=== PATIENT | female | born 1980 | race Two or more races ===

== ENCOUNTER 2017-08-10 07:28 | Emergency (ER) | payer OTHER ==
[2017-08-10] MEDS ORDERED: NAPR500T3 (07:51)
[2017-08-10] MEDS ORDERED: OMEP20CA3 (07:51)
[2017-08-10] MEDS ORDERED: VITA-122 (07:51)
[2017-08-10] MEDS ORDERED: METF750T (07:51)
[2017-08-10] MEDS ORDERED: ADVA230A (07:51)
[2017-08-10] MEDS ORDERED: KETO2SH (07:51)
[2017-08-10] MEDS ORDERED: SPIR25TA2 (07:51)
[2017-08-10] MEDS ORDERED: MOME50SP (07:51)
[2017-08-10] MEDS ORDERED: TOPI25TA10 (07:51)
[2017-08-10] MEDS ORDERED: ALBU17IN (07:51)
[2017-08-10] MEDS ORDERED: [UNRECOGNIZED DRUG - CODE] (07:51)
[2017-08-10] MEDS ORDERED: NORCO, ANEXSIA 5/325MG TABLET (HYDROcodone/ACETAMINOPHEN) PO ONE (08:45)
--- NOTE | 2017-08-10 09:44 | REP ---
Right ankle series: Four views. History: Trauma. Findings: Four views right ankle demonstrate an intact ankle mortise. No acute fracture is seen. There is a old triangular accessory ossicle at the medial malleolus. 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 Plantar and Achilles calcaneal spurring is also noted. Impression: No acute fracture. Tibiotalar spurring and calcaneal spurring noted. Accessory ossicle at the medial malleolus. Signed by Roberto Spence MD 08/10/2017 03:02 P
[2017-08-10 09:51] VITALS: BP 131/81
[2017-08-10] MEDS ORDERED: IBUP-1022 PO (11:50)
== END 2017-08-10 10:02 | disposition home or self-care (01) ==
LOC: M ED 07:28
DX: S93.401A Sprain of unspecified ligament of right ankle, initial encounter (principal); X50.9XXA Other and unspecified overexertion or strenuous movements or postures, initial encounter; Y92.019 Unspecified place in single-family (private) house as the place of occurrence of the external cause; Y93.01 Activity, walking, marching and hiking; Y99.8 Other external cause status; M77.31 Calcaneal spur, right foot; J45.909 Unspecified asthma, uncomplicated; Z79.3 Long term (current) use of hormonal contraceptives; Z79.899 Other long term (current) drug therapy; Z88.8 Allergy status to other drugs, medicaments and biological substances; Z88.1 Allergy status to other antibiotic agents; Z88.2 Allergy status to sulfonamides

== ENCOUNTER → 2017-12-28 | Outpatient (CLI) | payer OTHER | LOC: M RAD 09:26 | DX: M48.061 Spinal stenosis, lumbar region without neurogenic claudication (principal) ==

== ENCOUNTER 2018-04-15 15:14 | Inpatient (IN) | payer OTHER ==
[2018-04-15] MEDS ORDERED: ALBUTEROL SULFATE 2.5 MG/0.5 ML INH NEB SOLN As Ordered (15:35)
[2018-04-15] MEDS: ALBUTEROL SULFATE 2.5 MG/0.5 ML INH NEB SOLN NEB ×4 (15:38→18:10)
[2018-04-15] MEDS: NS 1,000 ML IV ×3 (15:53→22:59)
[2018-04-15] MEDS: ASPIRIN 81 MG CHEW TABLET PO (15:53)
[2018-04-15] MEDS: FAMOTIDINE IV BAG 20 MG in APPROPRIATE DILUENT 1 EA IV (15:54)
[2018-04-15 15:55] LABS: BASO # 0.1 10^3/uL (0.0-0.2); BASO % 0.4 % (0.0-1.0); EOS # 0.2 10^3/uL (0.0-0.50); EOS % 1.2 % (0.0-3.0); HEMATOCRIT 40.4 % (36.0-47.0); IMMATURE GRANULOCYTE % 0.6 % (0-3.0); LYMPH # 3.7 10^3/uL (1.5-4.5); LYMPH % 30.5 % (24.0-44.0); MEAN CORPUSCULAR HEMOGLOBIN 26.7 pg (27.0-33.0); MEAN CORPUSCULAR HGB CONC 32.2 g/dl (32.0-36.5); MONO # 1.1 10^3/uL (0.0-0.8); MONO % 8.9 % (0.0-5.0); NEUTROPHILS # 7.1 10^3/uL (1.8-7.7); NEUTROPHILS % 58.4 % (36.0-66.0); PLATELET COUNT, AUTOMATED 327 10^3/uL (150-450); RED BLOOD COUNT 4.87 10^6/uL (4.00-5.40); RED CELL DISTRIBUTION WIDTH 13.9 % (11.5-14.5); WHITE BLOOD COUNT 12.2 10^3/uL (4.0-10.0)
[2018-04-15 16:02] LABS: ANION GAP 7 MEQ/L (8-16); BLOOD UREA NITROGEN 9 MG/DL (7-18); CALCIUM LEVEL 8.9 MG/DL (8.5-10.1); CARBON DIOXIDE LEVEL 26 MEQ/L (21-32); CHLORIDE LEVEL 107 MEQ/L (98-107); CREATININE FOR GFR 0.76 MG/DL (0.55-1.30); GLOMERULAR FILTRATION RATE > 60.0 (>60); GLUCOSE, FASTING 109 MG/DL (70-100); POTASSIUM SERUM 3.7 MEQ/L (3.5-5.1); SODIUM LEVEL 140 MEQ/L (136-145); TROPONIN I < 0.02 NG/ML (< 0.10)
[2018-04-15 16:03] LABS: CK-MB VALUE MASS < 1.0 NG/ML (<3.6); CPK CREATINE PHOSPHOKINASE 74 U/L (26-192); MB/CK RELATIVE INDEX 1.35 (< OR =4)
[2018-04-15 16:20] LABS: INR 1.04; PROTHROMBIN TIME 13.7 SECONDS (12.4-14.5)
[2018-04-15 16:23] LABS: D-DIMER QUANT 435.5 ng/ml (<500)
[2018-04-15 17:29] LABS: VENOUS BASE EXCESS -5.1 (-2.0-2.0); VENOUS HCO3 19.9 MEQ/L (23.0-27.0); VENOUS O2 SATURATION 82.5 % (60.0-80.0); VENOUS PARTIAL PRESSURE O2 49.7 mmHg (30.0-50.0); VENOUS PH 7.348 UNITS (7.330-7.430)
[2018-04-15] MEDS ORDERED: ISOVUE-370 76% 100ML VIAL (Q9967) As Ordered (18:57)
[2018-04-15] MEDS: methylPREDNISolone INJ 125 MG/2 ML VIAL (J2930) IV (21:41)
[2018-04-15] MEDS: AZITHROMYCIN 250 MG TAB PO (21:41)
[2018-04-16] MEDS: methylPREDNISolone INJ 125 MG/2 ML VIAL (J2930) IV ×2 (03:25→10:03)
[2018-04-16] MEDS: IPRATROPIUM 0.5MG/ALBUTEROL 2.5MG INH SOL UD 3ML (DUONEB)(J7620) NEB ×7 (03:31→23:39)
[2018-04-16 06:09] LABS: BASO % 0.1 % (0.0-1.0); HEMATOCRIT 38.7 % (36.0-47.0); HEMOGLOBIN 12.7 g/dl (12.0-15.5); IMMATURE GRANULOCYTE % 0.6 % (0-3.0); LYMPH # 1.5 10^3/uL (1.5-4.5); LYMPH % 9.1 % (24.0-44.0); MEAN CORPUSCULAR HEMOGLOBIN 26.6 pg (27.0-33.0); MEAN CORPUSCULAR HGB CONC 32.8 g/dl (32.0-36.5); MEAN CORPUSCULAR VOLUME 81.1 fl (80.0-96.0); MONO # 0.2 10^3/uL (0.0-0.8); MONO % 1.3 % (0.0-5.0); NEUTROPHILS # 14.5 10^3/uL (1.8-7.7); NEUTROPHILS % 88.9 % (36.0-66.0); PLATELET COUNT, AUTOMATED 344 10^3/uL (150-450); RED BLOOD COUNT 4.77 10^6/uL (4.00-5.40); RED CELL DISTRIBUTION WIDTH 13.9 % (11.5-14.5); WHITE BLOOD COUNT 16.3 10^3/uL (4.0-10.0)
[2018-04-16 06:26] LABS: ANION GAP 10 MEQ/L (8-16); BLOOD UREA NITROGEN 8 MG/DL (7-18); CARBON DIOXIDE LEVEL 21 MEQ/L (21-32); CHLORIDE LEVEL 109 MEQ/L (98-107); CREATININE FOR GFR 0.66 MG/DL (0.55-1.30); GLOMERULAR FILTRATION RATE > 60.0 (>60); GLUCOSE, FASTING 183 MG/DL (70-100); SODIUM LEVEL 140 MEQ/L (136-145)
[2018-04-16] MEDS: TIOTROPIUM INHALER/CAPSULE (SPIRIVA) INH (08:00)
[2018-04-16] MEDS: ENOXAPARIN 40 MG/0.4 ML SYRINGE (J1650) SC (08:47)
[2018-04-16] MEDS: ACETAMINOPHEN TAB 650MG DOSE (2X325MG) PO (08:49)
[2018-04-16] MEDS: PANTOPRAZOLE 40MG TAB (PROTONIX) PO (08:50)
[2018-04-16] MEDS: NS 1,000 ML IV (08:50)
[2018-04-16] MEDS: ADVAIR HFA 230/21MCG INHALER INH ×2 (09:00→21:29)
[2018-04-16] MEDS ORDERED: FLUTICASONE PROP 0.05% NASAL SPRAY 16 GM (FLONASE) (10:15)
[2018-04-16 11:38] LABS: ESTIMATED AVERAGE GLUCOSE 117 MG/DL (60-110); HEMOGLOBIN A1c 5.7 %
[2018-04-16 11:48] LABS: C REACTIVE PROTEIN QUANTITATIV 1.44 MG/DL (0.00-0.30); CK-MB VALUE MASS < 1.0 NG/ML (<3.6); CPK CREATINE PHOSPHOKINASE 78 U/L (26-192); MB/CK RELATIVE INDEX 1.28 (< OR =4); TROPONIN I < 0.02 NG/ML (< 0.10)
[2018-04-16] MEDS: VITAMIN D 1,000 INTERNATIONAL UNITS TABLET PO (11:56)
[2018-04-16] MEDS: guaiFENesin ER 600 MG TAB PO ×2 (11:57→20:54)
[2018-04-16] MEDS: FIORICET TAB PO (11:57)
[2018-04-16] MEDS: CYANOCOBALAMIN 500 MCG TAB PO (11:58)
[2018-04-16] MEDS: methylPREDNISolone INJ 40 MG/1 ML VIAL (J2920) IV ×2 (17:01→22:07)
[2018-04-16] MEDS: TOPIRAMATE (TopAMAX) 25 MG TAB PO (20:53)
[2018-04-16] MEDS: AZITHROMYCIN 250 MG TAB PO (20:54)
[2018-04-17] MEDS: IPRATROPIUM 0.5MG/ALBUTEROL 2.5MG INH SOL UD 3ML (DUONEB)(J7620) NEB ×6 (04:03→23:54)
[2018-04-17] MEDS: methylPREDNISolone INJ 40 MG/1 ML VIAL (J2920) IV ×3 (04:19→20:00)
[2018-04-17 05:54] LABS: HEMATOCRIT 38.7 % (36.0-47.0); HEMOGLOBIN 12.4 g/dl (12.0-15.5); MEAN CORPUSCULAR HEMOGLOBIN 26.3 pg (27.0-33.0); PLATELET COUNT, AUTOMATED 384 10^3/uL (150-450); RED BLOOD COUNT 4.72 10^6/uL (4.00-5.40); RED CELL DISTRIBUTION WIDTH 14.2 % (11.5-14.5); WHITE BLOOD COUNT 19.8 10^3/uL (4.0-10.0)
[2018-04-17 06:06] LABS: ANION GAP 8 MEQ/L (8-16); BLOOD UREA NITROGEN 11 MG/DL (7-18); C REACTIVE PROTEIN QUANTITATIV 0.88 MG/DL (0.00-0.30); CALCIUM LEVEL 8.9 MG/DL (8.5-10.1); CARBON DIOXIDE LEVEL 20 MEQ/L (21-32); CHLORIDE LEVEL 110 MEQ/L (98-107); CREATININE FOR GFR 0.82 MG/DL (0.55-1.30); GLOMERULAR FILTRATION RATE > 60.0 (>60); GLUCOSE, FASTING 192 MG/DL (70-100); POTASSIUM SERUM 3.9 MEQ/L (3.5-5.1); SODIUM LEVEL 138 MEQ/L (136-145)
[2018-04-17] MEDS: TIOTROPIUM INHALER/CAPSULE (SPIRIVA) INH (07:10)
[2018-04-17] MEDS: ADVAIR HFA 230/21MCG INHALER INH ×2 (07:10→20:00)
[2018-04-17] MEDS: CYANOCOBALAMIN 500 MCG TAB PO (09:02)
[2018-04-17] MEDS: PANTOPRAZOLE 40MG TAB (PROTONIX) PO (09:02)
[2018-04-17] MEDS: ENOXAPARIN 40 MG/0.4 ML SYRINGE (J1650) SC (09:02)
[2018-04-17] MEDS: VITAMIN D 1,000 INTERNATIONAL UNITS TABLET PO (09:03)
[2018-04-17] MEDS: guaiFENesin ER 600 MG TAB PO ×2 (09:03→21:28)
[2018-04-17] MEDS: MAALOX 30 ML SUSP *UDC PO (14:37)
[2018-04-17] MEDS: OMEPRAZOLE 20 MG CAP PO (14:37)
[2018-04-17] MEDS: AZITHROMYCIN 250 MG TAB PO (21:29)
[2018-04-17] MEDS: FIORICET TAB PO (21:29)
[2018-04-17] MEDS: TOPIRAMATE (TopAMAX) 25 MG TAB PO (21:29)
[2018-04-18] MEDS: IPRATROPIUM 0.5MG/ALBUTEROL 2.5MG INH SOL UD 3ML (DUONEB)(J7620) NEB ×6 (03:37→23:30)
[2018-04-18] MEDS: methylPREDNISolone INJ 40 MG/1 ML VIAL (J2920) IV (04:24)
[2018-04-18 04:41] LABS: HEMATOCRIT 41.2 % (36.0-47.0); HEMOGLOBIN 13.1 g/dl (12.0-15.5); MEAN CORPUSCULAR HEMOGLOBIN 26.4 pg (27.0-33.0); MEAN CORPUSCULAR HGB CONC 31.8 g/dl (32.0-36.5); MEAN CORPUSCULAR VOLUME 83.1 fl (80.0-96.0); PLATELET COUNT, AUTOMATED 419 10^3/uL (150-450); RED BLOOD COUNT 4.96 10^6/uL (4.00-5.40); RED CELL DISTRIBUTION WIDTH 14.4 % (11.5-14.5); WHITE BLOOD COUNT 19.4 10^3/uL (4.0-10.0)
[2018-04-18 04:51] LABS: ANION GAP 9 MEQ/L (8-16); BLOOD UREA NITROGEN 12 MG/DL (7-18); C REACTIVE PROTEIN QUANTITATIV 0.55 MG/DL (0.00-0.30); CALCIUM LEVEL 9.1 MG/DL (8.5-10.1); CARBON DIOXIDE LEVEL 23 MEQ/L (21-32); CHLORIDE LEVEL 106 MEQ/L (98-107); CREATININE FOR GFR 0.91 MG/DL (0.55-1.30); GLOMERULAR FILTRATION RATE > 60.0 (>60); GLUCOSE, FASTING 193 MG/DL (70-100); MAGNESIUM LEVEL 2.2 MG/DL (1.8-2.4); SODIUM LEVEL 138 MEQ/L (136-145)
[2018-04-18] MEDS: TIOTROPIUM INHALER/CAPSULE (SPIRIVA) INH (07:40)
[2018-04-18] MEDS: ADVAIR HFA 230/21MCG INHALER INH ×2 (07:40→19:42)
[2018-04-18] MEDS: CYANOCOBALAMIN 500 MCG TAB PO (10:02)
[2018-04-18] MEDS: guaiFENesin ER 600 MG TAB PO ×2 (10:02→21:10)
[2018-04-18] MEDS: FIORICET TAB PO (10:02)
[2018-04-18] MEDS: OMEPRAZOLE 20 MG CAP PO (10:02)
[2018-04-18] MEDS: ENOXAPARIN 40 MG/0.4 ML SYRINGE (J1650) SC (10:03)
[2018-04-18] MEDS: VITAMIN D 1,000 INTERNATIONAL UNITS TABLET PO (10:03)
[2018-04-18] MEDS: ACETAMINOPHEN TAB 650MG DOSE (2X325MG) PO (15:06)
[2018-04-18] MEDS: methylPREDNISolone INJ 125 MG/2 ML VIAL (J2930) IV (15:07)
[2018-04-18] MEDS: BENZONATATE 100 MG CAP PO ×2 (15:07→21:10)
[2018-04-18] MEDS: TOPIRAMATE (TopAMAX) 25 MG TAB PO (21:10)
[2018-04-18] MEDS: AZITHROMYCIN 250 MG TAB PO (21:10)
[2018-04-19] MEDS: IPRATROPIUM 0.5MG/ALBUTEROL 2.5MG INH SOL UD 3ML (DUONEB)(J7620) NEB ×7 (03:20→22:59)
[2018-04-19] MEDS: methylPREDNISolone INJ 125 MG/2 ML VIAL (J2930) IV ×2 (04:08→15:07)
[2018-04-19] MEDS: BENZONATATE 100 MG CAP PO ×3 (05:04→21:13)
[2018-04-19 06:30] LABS: HEMATOCRIT 40.5 % (36.0-47.0); HEMOGLOBIN 13.2 g/dl (12.0-15.5); MEAN CORPUSCULAR HEMOGLOBIN 26.6 pg (27.0-33.0); MEAN CORPUSCULAR HGB CONC 32.6 g/dl (32.0-36.5); MEAN CORPUSCULAR VOLUME 81.7 fl (80.0-96.0); PLATELET COUNT, AUTOMATED 412 10^3/uL (150-450); RED BLOOD COUNT 4.96 10^6/uL (4.00-5.40); RED CELL DISTRIBUTION WIDTH 14.3 % (11.5-14.5); WHITE BLOOD COUNT 17.9 10^3/uL (4.0-10.0)
[2018-04-19 06:57] LABS: ANION GAP 10 MEQ/L (8-16); BLOOD UREA NITROGEN 14 MG/DL (7-18); C REACTIVE PROTEIN QUANTITATIV 0.32 MG/DL (0.00-0.30); CALCIUM LEVEL 8.8 MG/DL (8.5-10.1); CARBON DIOXIDE LEVEL 23 MEQ/L (21-32); CHLORIDE LEVEL 104 MEQ/L (98-107); GLOMERULAR FILTRATION RATE > 60.0 (>60); GLUCOSE, FASTING 184 MG/DL (70-100); MAGNESIUM LEVEL 2.2 MG/DL (1.8-2.4); SODIUM LEVEL 137 MEQ/L (136-145)
[2018-04-19 07:25] LABS: IMMUNOGLOBULIN E 17.2 IU/ML (<100)
[2018-04-19] MEDS: guaiFENesin ER 600 MG TAB PO ×2 (08:01→21:13)
[2018-04-19] MEDS: OMEPRAZOLE 20 MG CAP PO (08:01)
[2018-04-19] MEDS: ENOXAPARIN 40 MG/0.4 ML SYRINGE (J1650) SC (08:01)
[2018-04-19] MEDS: VITAMIN D 1,000 INTERNATIONAL UNITS TABLET PO (08:02)
[2018-04-19] MEDS: CYANOCOBALAMIN 500 MCG TAB PO (08:02)
[2018-04-19 08:11] LABS: ABG HCO3 20.3 MEQ/L (22.0-26.0); ABG O2 SATURATION 98.7 % (95.0-99.0); ABG PARTIAL PRESSURE CO2 31.7 mmHg (35.0-45.0); ABG PARTIAL PRESSURE O2 120.5 mmHg (75.0-100.0); ABG TOTAL CO2 21.3 MEQ/L (22.0-29.0); ABG pH (ARTERIAL) 7.425 UNITS (7.350-7.450)
[2018-04-19] MEDS: MIRALAX *UNIT DOSE* 17GM PACKET PO (09:00)
[2018-04-19] MEDS: ADVAIR HFA 230/21MCG INHALER INH ×2 (09:42→21:28)
[2018-04-19] MEDS: TIOTROPIUM INHALER/CAPSULE (SPIRIVA) INH (09:42)
[2018-04-19] MEDS: cefTRIAXone SOD 2 GM in D5W MINI-BAG PLUS 50 ML IV (13:01)
[2018-04-19] MEDS: TOPIRAMATE (TopAMAX) 25 MG TAB PO (21:12)
[2018-04-19] MEDS: SENOKOT S TAB PO (21:12)
[2018-04-19] MEDS: AZITHROMYCIN 250 MG TAB PO (21:13)
[2018-04-19] MEDS: MAALOX 30 ML SUSP *UDC PO (21:49)
[2018-04-19] MEDS: ACETAMINOPHEN TAB 650MG DOSE (2X325MG) PO (21:50)
[2018-04-20] MEDS: IPRATROPIUM 0.5MG/ALBUTEROL 2.5MG INH SOL UD 3ML (DUONEB)(J7620) NEB ×6 (03:25→23:56)
[2018-04-20] MEDS: methylPREDNISolone INJ 125 MG/2 ML VIAL (J2930) IV (03:41)
[2018-04-20] MEDS: ACETAMINOPHEN TAB 650MG DOSE (2X325MG) PO (03:42)
[2018-04-20] MEDS: BENZONATATE 100 MG CAP PO ×3 (05:30→20:23)
[2018-04-20 06:20] LABS: HEMATOCRIT 42.1 % (36.0-47.0); HEMOGLOBIN 13.9 g/dl (12.0-15.5); MEAN CORPUSCULAR HEMOGLOBIN 26.7 pg (27.0-33.0); PLATELET COUNT, AUTOMATED 428 10^3/uL (150-450); RED CELL DISTRIBUTION WIDTH 14.2 % (11.5-14.5); WHITE BLOOD COUNT 20.1 10^3/uL (4.0-10.0)
[2018-04-20 06:36] LABS: ANION GAP 11 MEQ/L (8-16); BLOOD UREA NITROGEN 17 MG/DL (7-18); C REACTIVE PROTEIN QUANTITATIV < 0.30 MG/DL (0.00-0.30); CALCIUM LEVEL 8.6 MG/DL (8.5-10.1); CARBON DIOXIDE LEVEL 22 MEQ/L (21-32); CHLORIDE LEVEL 105 MEQ/L (98-107); CREATININE FOR GFR 0.98 MG/DL (0.55-1.30); GLOMERULAR FILTRATION RATE > 60.0 (>60); GLUCOSE, FASTING 180 MG/DL (70-100); MAGNESIUM LEVEL 2.5 MG/DL (1.8-2.4); POTASSIUM SERUM 4.4 MEQ/L (3.5-5.1); SODIUM LEVEL 138 MEQ/L (136-145)
[2018-04-20] MEDS: ADVAIR HFA 230/21MCG INHALER INH ×2 (08:20→21:02)
[2018-04-20] MEDS: TIOTROPIUM INHALER/CAPSULE (SPIRIVA) INH (08:20)
[2018-04-20] MEDS: SENOKOT S TAB PO ×2 (08:42→20:23)
[2018-04-20] MEDS: OMEPRAZOLE 20 MG CAP PO (08:42)
[2018-04-20] MEDS: MIRALAX *UNIT DOSE* 17GM PACKET PO (08:42)
[2018-04-20] MEDS: guaiFENesin ER 600 MG TAB PO ×2 (08:42→20:23)
[2018-04-20] MEDS: ENOXAPARIN 40 MG/0.4 ML SYRINGE (J1650) SC (08:42)
[2018-04-20] MEDS: VITAMIN D 1,000 INTERNATIONAL UNITS TABLET PO (08:43)
[2018-04-20] MEDS: CYANOCOBALAMIN 500 MCG TAB PO (08:43)
[2018-04-20] MEDS: cefTRIAXone SOD 2 GM in D5W MINI-BAG PLUS 50 ML IV (12:20)
[2018-04-20] MEDS: TOPIRAMATE (TopAMAX) 25 MG TAB PO (20:22)
[2018-04-20] MEDS: CEFDINIR 300 MG CAP (OMNICEF) PO (20:23)
[2018-04-20] MEDS: predniSONE 20 MG TAB PO (20:23)
[2018-04-20] MEDS: AZITHROMYCIN 250 MG TAB PO (20:24)
[2018-04-21] MEDS: IPRATROPIUM 0.5MG/ALBUTEROL 2.5MG INH SOL UD 3ML (DUONEB)(J7620) NEB ×6 (04:15→23:48)
[2018-04-21] MEDS: BENZONATATE 100 MG CAP PO ×3 (05:23→21:03)
[2018-04-21 06:39] LABS: HEMATOCRIT 43.4 % (36.0-47.0); HEMOGLOBIN 13.9 g/dl (12.0-15.5); MEAN CORPUSCULAR HEMOGLOBIN 26.4 pg (27.0-33.0); MEAN CORPUSCULAR VOLUME 82.4 fl (80.0-96.0); PLATELET COUNT, AUTOMATED 414 10^3/uL (150-450); RED BLOOD COUNT 5.27 10^6/uL (4.00-5.40); RED CELL DISTRIBUTION WIDTH 14.3 % (11.5-14.5); WHITE BLOOD COUNT 19.3 10^3/uL (4.0-10.0)
[2018-04-21 06:55] LABS: ANION GAP 12 MEQ/L (8-16); BLOOD UREA NITROGEN 17 MG/DL (7-18); C REACTIVE PROTEIN QUANTITATIV < 0.30 MG/DL (0.00-0.30); CALCIUM LEVEL 8.4 MG/DL (8.5-10.1); CARBON DIOXIDE LEVEL 24 MEQ/L (21-32); CHLORIDE LEVEL 103 MEQ/L (98-107); CREATININE FOR GFR 1.01 MG/DL (0.55-1.30); GLOMERULAR FILTRATION RATE > 60.0 (>60); GLUCOSE, FASTING 213 MG/DL (70-100); MAGNESIUM LEVEL 2.4 MG/DL (1.8-2.4); POTASSIUM SERUM 4.6 MEQ/L (3.5-5.1); SODIUM LEVEL 139 MEQ/L (136-145)
[2018-04-21] MEDS: TIOTROPIUM INHALER/CAPSULE (SPIRIVA) INH (08:12)
[2018-04-21] MEDS: ADVAIR HFA 230/21MCG INHALER INH ×2 (08:12→21:13)
[2018-04-21] MEDS: OMEPRAZOLE 20 MG CAP PO (10:17)
[2018-04-21] MEDS: guaiFENesin ER 600 MG TAB PO ×2 (10:17→21:03)
[2018-04-21] MEDS: VITAMIN D 1,000 INTERNATIONAL UNITS TABLET PO (10:17)
[2018-04-21] MEDS: CEFDINIR 300 MG CAP (OMNICEF) PO ×2 (10:17→21:03)
[2018-04-21] MEDS: MIRALAX *UNIT DOSE* 17GM PACKET PO (10:18)
[2018-04-21] MEDS: ENOXAPARIN 40 MG/0.4 ML SYRINGE (J1650) SC (10:18)
[2018-04-21] MEDS: SENOKOT S TAB PO ×2 (10:18→21:03)
[2018-04-21] MEDS: CYANOCOBALAMIN 500 MCG TAB PO (10:18)
[2018-04-21] MEDS: ACETAMINOPHEN TAB 650MG DOSE (2X325MG) PO ×2 (10:32→20:00)
[2018-04-21] MEDS: MAALOX 30 ML SUSP *UDC PO (20:00)
[2018-04-21] MEDS: predniSONE 20 MG TAB PO (21:03)
[2018-04-21] MEDS: AZITHROMYCIN 250 MG TAB PO (21:03)
[2018-04-21] MEDS: TOPIRAMATE (TopAMAX) 25 MG TAB PO (21:03)
[2018-04-22] MEDS: IPRATROPIUM 0.5MG/ALBUTEROL 2.5MG INH SOL UD 3ML (DUONEB)(J7620) NEB ×5 (04:06→20:54)
[2018-04-22] MEDS: BENZONATATE 100 MG CAP PO ×3 (05:41→21:17)
[2018-04-22 06:27] LABS: HEMATOCRIT 43.4 % (36.0-47.0); MEAN CORPUSCULAR HEMOGLOBIN 26.6 pg (27.0-33.0); MEAN CORPUSCULAR HGB CONC 32.3 g/dl (32.0-36.5); MEAN CORPUSCULAR VOLUME 82.4 fl (80.0-96.0); PLATELET COUNT, AUTOMATED 399 10^3/uL (150-450); RED BLOOD COUNT 5.27 10^6/uL (4.00-5.40); RED CELL DISTRIBUTION WIDTH 14.3 % (11.5-14.5); WHITE BLOOD COUNT 21.1 10^3/uL (4.0-10.0)
[2018-04-22 06:47] LABS: ANION GAP 11 MEQ/L (8-16); BLOOD UREA NITROGEN 21 MG/DL (7-18); C REACTIVE PROTEIN QUANTITATIV 0.55 MG/DL (0.00-0.30); CALCIUM LEVEL 8.2 MG/DL (8.5-10.1); CARBON DIOXIDE LEVEL 25 MEQ/L (21-32); CHLORIDE LEVEL 103 MEQ/L (98-107); CREATININE FOR GFR 1.12 MG/DL (0.55-1.30); GLOMERULAR FILTRATION RATE 58.6 (>60); GLUCOSE, FASTING 188 MG/DL (70-100); MAGNESIUM LEVEL 2.3 MG/DL (1.8-2.4); POTASSIUM SERUM 4.6 MEQ/L (3.5-5.1); SODIUM LEVEL 139 MEQ/L (136-145)
[2018-04-22] MEDS: ADVAIR HFA 230/21MCG INHALER INH ×2 (07:18→20:54)
[2018-04-22] MEDS: TIOTROPIUM INHALER/CAPSULE (SPIRIVA) INH (07:18)
[2018-04-22] MEDS: SODIUM CHLORIDE NASAL 0.65% SPRAY BTL (OCEAN) (07:54)
[2018-04-22] MEDS: CEFDINIR 300 MG CAP (OMNICEF) PO ×2 (07:55→21:17)
[2018-04-22] MEDS: MIRALAX *UNIT DOSE* 17GM PACKET PO (07:55)
[2018-04-22] MEDS: CYANOCOBALAMIN 500 MCG TAB PO (07:55)
[2018-04-22] MEDS: guaiFENesin ER 600 MG TAB PO ×2 (07:55→21:17)
[2018-04-22] MEDS: OMEPRAZOLE 20 MG CAP PO (07:55)
[2018-04-22] MEDS: VITAMIN D 1,000 INTERNATIONAL UNITS TABLET PO (07:55)
[2018-04-22] MEDS: SENOKOT S TAB PO ×2 (07:55→21:18)
[2018-04-22] MEDS: ENOXAPARIN 40 MG/0.4 ML SYRINGE (J1650) SC (07:56)
[2018-04-22] MEDS: FLUTICASONE PROP 0.05% NASAL SPRAY 16 GM (FLONASE) ×2 (14:30→21:20)
[2018-04-22] MEDS: ACETAMINOPHEN TAB 650MG DOSE (2X325MG) PO ×2 (14:30→21:19)
[2018-04-22] MEDS: NAPROXEN 250 MG TAB PO (19:29)
[2018-04-22] MEDS: TOPIRAMATE (TopAMAX) 25 MG TAB PO (21:17)
[2018-04-22] MEDS: AZITHROMYCIN 250 MG TAB PO (21:17)
[2018-04-22] MEDS: predniSONE 20 MG TAB PO (21:18)
[2018-04-23] MEDS: IPRATROPIUM 0.5MG/ALBUTEROL 2.5MG INH SOL UD 3ML (DUONEB)(J7620) NEB ×5 (00:15→15:10)
[2018-04-23] MEDS: ACETAMINOPHEN TAB 650MG DOSE (2X325MG) PO ×4 (01:31→15:25)
[2018-04-23] MEDS: BENZONATATE 100 MG CAP PO ×2 (05:38→14:00)
[2018-04-23 06:35] LABS: HEMATOCRIT 42.3 % (36.0-47.0); HEMOGLOBIN 13.8 g/dl (12.0-15.5); MEAN CORPUSCULAR HEMOGLOBIN 26.7 pg (27.0-33.0); MEAN CORPUSCULAR HGB CONC 32.6 g/dl (32.0-36.5); PLATELET COUNT, AUTOMATED 387 10^3/uL (150-450); RED BLOOD COUNT 5.16 10^6/uL (4.00-5.40); RED CELL DISTRIBUTION WIDTH 14.6 % (11.5-14.5); WHITE BLOOD COUNT 18.4 10^3/uL (4.0-10.0)
[2018-04-23 06:56] LABS: ANION GAP 10 MEQ/L (8-16); BLOOD UREA NITROGEN 20 MG/DL (7-18); CALCIUM LEVEL 8.1 MG/DL (8.5-10.1); CARBON DIOXIDE LEVEL 23 MEQ/L (21-32); CHLORIDE LEVEL 106 MEQ/L (98-107); CREATININE FOR GFR 0.99 MG/DL (0.55-1.30); GLOMERULAR FILTRATION RATE > 60.0 (>60); GLUCOSE, FASTING 183 MG/DL (70-100); MAGNESIUM LEVEL 2.3 MG/DL (1.8-2.4); POTASSIUM SERUM 4.6 MEQ/L (3.5-5.1); SODIUM LEVEL 139 MEQ/L (136-145)
[2018-04-23] MEDS: ADVAIR HFA 230/21MCG INHALER INH (07:33)
[2018-04-23] MEDS: TIOTROPIUM INHALER/CAPSULE (SPIRIVA) INH (07:33)
[2018-04-23] MEDS: FLUTICASONE PROP 0.05% NASAL SPRAY 16 GM (FLONASE) (09:00)
[2018-04-23] MEDS: SENOKOT S TAB PO (09:08)
[2018-04-23] MEDS: guaiFENesin ER 600 MG TAB PO (09:08)
[2018-04-23] MEDS: MIRALAX *UNIT DOSE* 17GM PACKET PO (09:08)
[2018-04-23] MEDS: CEFDINIR 300 MG CAP (OMNICEF) PO (09:08)
[2018-04-23] MEDS: OMEPRAZOLE 20 MG CAP PO (09:08)
[2018-04-23] MEDS: CYANOCOBALAMIN 500 MCG TAB PO (09:08)
[2018-04-23] MEDS: VITAMIN D 1,000 INTERNATIONAL UNITS TABLET PO (09:09)
[2018-04-23] MEDS: ENOXAPARIN 40 MG/0.4 ML SYRINGE (J1650) SC (09:09)
[2018-04-23] MEDS: NAPROXEN 250 MG TAB PO (11:22)
== END 2018-04-23 15:58 | disposition home or self-care (01) | DRG 202 ==
LOC: M MSPAV 04-18 11:39 → M ED 15:14 → M ED INP 21:03 → M PCU 22:34
DX: J45.901 Unspecified asthma with (acute) exacerbation (principal); J96.91 Respiratory failure, unspecified with hypoxia; E66.2 Morbid (severe) obesity with alveolar hypoventilation; G47.33 Obstructive sleep apnea (adult) (pediatric); R73.9 Hyperglycemia, unspecified; I08.2 Rheumatic disorders of both aortic and tricuspid valves; Z79.899 Other long term (current) drug therapy; Z88.8 Allergy status to other drugs, medicaments and biological substances; Z88.2 Allergy status to sulfonamides; Z91.018 Allergy to other foods; Z91.040 Latex allergy status

== ENCOUNTER → 2018-04-30 | Outpatient (CLI) | payer OTHER | LOC: M RAD 17:44 | DX: J01.40 Acute pansinusitis, unspecified (principal) | CPT/HCPCS: 70486 ==

== ENCOUNTER 2018-05-07 20:45 | Emergency (ER) | payer OTHER | END 2018-05-07 21:00 | disposition home or self-care (01) | LOC: M ED 20:45 | DX: S50.02XA Contusion of left elbow, initial encounter (principal); S60.011A Contusion of right thumb without damage to nail, initial encounter; M54.9 Dorsalgia, unspecified; V49.9XXA Car occupant (driver) (passenger) injured in unspecified traffic accident, initial encounter; Y92.410 Unspecified street and highway as the place of occurrence of the external cause; Y93.9 Activity, unspecified; Y99.9 Unspecified external cause status; M25.722 Osteophyte, left elbow; J45.909 Unspecified asthma, uncomplicated; G43.909 Migraine, unspecified, not intractable, without status migrainosus; K21.9 Gastro-esophageal reflux disease without esophagitis; M48.00 Spinal stenosis, site unspecified; J30.89 Other allergic rhinitis; Z79.899 Other long term (current) drug therapy; Z88.8 Allergy status to other drugs, medicaments and biological substances; Z91.89 Other specified personal risk factors, not elsewhere classified; Z91.040 Latex allergy status; Z88.2 Allergy status to sulfonamides; Z91.018 Allergy to other foods | CPT/HCPCS: 73080 ==

== ENCOUNTER → 2018-09-10 | Outpatient (CLI) | payer OTHER | LOC: M PLARAD 09:57 | DX: G43.909 Migraine, unspecified, not intractable, without status migrainosus (principal) ==

== ENCOUNTER → 2018-09-17 | Outpatient (CLI) | payer OTHER | LOC: M PAIN 10:30 | DX: M47.816 Spondylosis without myelopathy or radiculopathy, lumbar region (principal); J45.909 Unspecified asthma, uncomplicated; G47.30 Sleep apnea, unspecified; Z79.51 Long term (current) use of inhaled steroids; Z79.899 Other long term (current) drug therapy; Z88.2 Allergy status to sulfonamides | CPT/HCPCS: G0463 ==

== ENCOUNTER → 2018-11-12 | Outpatient (CLI) | payer OTHER ==
[~2018-11-12] MED LIST: ADVA230A; ADVA230A INH; ALBU17IN; CEFD300CAP PO; DICL1GEL3 TD; IBUP-1022 PO; IBUP1TAB6 PO; KETO2SH; METF750T; MOME50SP; NAPR-885; NAPR-885 PO; NAPR1TAB86 PO; NIZO2SHA EXT; OMEP20CA3; OMEP20TA PO; PATIENT COMMENT; PRED10TA2 PO; ROBA500T PO; SPIR-10; TOPI25TA10; TOPI25TA10 PO; VENTAER INH; VITA-122; VITA100066 PO; VITA500T3 PO; [UNRECOGNIZED DRUG - CODE]
--- NOTE | 2018-11-29 00:17 | ECWPNPC ---
PATIENT NAME: MYKE SWANSON : 1980 GENDER: FEMALE VISIT DATE: 11/12/2018 DISCHARGE DATE: 11/12/18 1017 VISIT LOCKED DATE TIME: PHYSICIAN: BREANNA LIMA MD RESOURCE: BREANNA LIMA MD REASON FOR APPOINTMENT 1. W/C THORACIC HISTORY OF PRESENT ILLNESS NEW PATIENT CONSULT: WHEN DID YOUR PAIN FIRST START? . BRIEFLY DESCRIBE HOW YOUR PAIN STARTED? . HOW DOES YOUR PAIN CHANGE WITH TIME? . DOES YOUR PAIN AWAKEN YOU FROM SLEEP? . HOW MANY HOURS OF SLEEP DO YOU NORMALLY GET? . ANY DIAGNOSTIC TESTING? . FACILITY WHERE TESTS WERE DONE? ____. PAIN TREATMENT TREATMENT YES CANCER HAVE YOU EVER HAD ANY TYPE OF CANCER?NO NO. 38 YEAR OLD FEMALE PATIENT WITH A HISTORY OF CHRONIC THORACIC PAIN. THE PATIENT DESCRIBES THE PAIN ACHING, BURNING, SORE, TENDER, STABBING, SHOOTING, AND CONTINUOUS WITH A PAIN SCORE OF 6-9/10 DEPENDING ON PHYSICAL ACTIVITY. 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 THE PATIENT SAYS HER PAIN IS ON BOTH SIDES OF HER THORACIC AREA, BUT IT IS MAINLY ON THE RIGHT SIDE. THE PATIENT SAYS THAT PHYSICAL THERAPY AND HER TENS UNIT HAVE BEEN HELPFUL, BUT SHE STILL HAS DIFFICULTY DOING ACTIVITIES SUCH CLEANING HER HOUSE, DOING GROCERIES AND WORKING. SPECIALLY DURING THE LAST MONTH THE PAIN AT THE RIGHT THORACIC AREA HAS BECOME INTOLERABLE. PATIENT DENIES UNEXPLAINABLE WEIGHT LOSS, FEVER, CHILLS, NEW CHANGES ON HER URINARY OR BOWEL CONTROL. PAIN SCREENING: PATIENT HAS A COMPLAINT OF ACUTE OR CHRONIC PAIN :YES FALL RISK SCREENING: SCREENING :NO FALLS IN THE PAST YEAR GRANADOS INVENTORY: QUESTIONNAIRE ASSESSEDTBD SCORE VALUE CALCULATED TBD CURRENT MEDICATIONS TAKING VENTOLIN HFA 108 (90 BASE) MCG/ACT AEROSOL SOLUTION 2 PUFFS NEEDED INHALATION EVERY 6 HRS TAKING LIDOCAINE 5 % CREAM EXTERNALLY TAKING VOLTAREN 1 % GEL TRANSDERMAL TAKING TYLENOL 325 MG TABLET 1 TABLET NEEDED ORALLY EVERY 4 HRS TAKING VITAMIN D 1000 UNIT CAPSULE 1 CAPSULE ORALLY ONCE A DAY TAKING VITAMIN B 12 500 MCG LOZENGE 2 LOZENGES ORALLY ONCE A DAY TAKING ADVAIR DISKUS 500-50 MCG/DOSE AEROSOL POWDER BREATH ACTIVATED 1 PUFF INHALATION TWICE A DAY TAKING FLOVENT HFA 44 MCG/ACT AEROSOL 1 PUFF INHALATION TWICE A DAY TAKING MELOXICAM 7.5 MG TABLET 1 TABLET ORALLY ONCE A DAY MEDICATION LIST REVIEWED AND RECONCILED WITH THE PATIENT PAST MEDICAL HISTORY DEGENERATION OF LUMBAR INTERVERTABRAL DISC ASTHMA SLEP APNEA ALLERGIES SULFA (FOR ALLERGY USE ONLY) MANY ENVIRONMENTAL CATS/DOGS/MOLD /GRAS SURGICAL HISTORY NO SURGICAL HISTORY DOCUMENTED. FAMILY HISTORY FATHER: ALIVE MOTHER: SIBLINGS: ALIVE SOCIAL HISTORY GENERAL: TOBACCO USE ARE YOU A:NONSMOKER ALCOHOL SCREENING DID YOU HAVE A DRINK CONTAINING ALCOHOL IN THE PAST YEAR?NO POINTS0 INTERPRETATIONNEGATIVE CAFFEINE CAFFEINE USE?NO LANGUAGE LANGUAGES SPOKEN:FRENCH EDUCATION LEVEL OF EDUCATION:NOT FINISHED COLLEGE LEARNING BARRIERS / SPECIAL NEEDS SPECIAL DEVICES?YES CPAP USED OCCUPATION: DO YOU FEEL SAFE IN YOUR ENVIRONMENT? YES. DIET: DO YOU FEEL SAFE IN YOUR ENVIRONMENT? YES. EXERCISE: DAILY. MARITAL STATUS: DAILY. OTHERS AT HOME: SPOUSE. PAIN CLINIC PFS, CLERGY, PUBLIC HEALTH REFERRALS PFS REFERRAL NEEDED?NO CLERGY REFERRAL NEEDED?NO PUBLIC HEALTH REFERRAL NEEDED?NO WAS THE PROVIDER NOTIFIED OF ANY PERTINENT INFO?NO HAS THE PATIENT BEEN EDUCATED REGARDING HIS/HER PLAN OF CARE?YES HAS THE PATIENT BEEN EDUCATED REGARDING PAIN, THE RISK FOR PAIN, THE IMPORTANCE OF EFFECTIVE PAIN MANAGEMENT, AND THE PAIN ASSESSMENT PROCESS?YES HOUSING: OWNS HOME. ADVANCE DIRECTIVE ADVANCE DIRECTIVE DISCUSSED WITH PATIENT:YES HOSPITALIZATION/MAJOR DIAGNOSTIC PROCEDURE [facility] REVIEW OF SYSTEMS REVIEWED BY: PROVIDER: BREANNA LIMA MD . CONSTITUTIONAL: ANY CHANGE IN YOUR MEDICAL CONDITION? NO . CHILLS NO . FEVER NO . INFECTION: DO YOU HAVE NEW INFECTIONS? NO . DO YOU HAVE HISTORY OF MRSA? NO . MUSCULOSKELETAL: ANY NEW PATTERNS OF PAIN OR NUMBNESS? NO . SYTEMIC LUPUS NO . GASTROENTEROLOGY: ANY NEW CHANGE IN BOWEL CONTROL? NO . BARRETTS ESOPHAGUS NO . CIRRHOSIS NO . HEPATITIS NO . LIVER FAILURE NO . ACID REFLUX NO . UNEXPLAINED WEIGHT LOSS NO . GENITOURINARY: ANY NEW CHANGE IN BLADDER CONTROL? NO . IS THERE A CHANCE YOU COULD BE ? NO . HEMATOLOGY/LYMPH: DO YOU TAKE ANY BLOOD THINNERS? (FOR EXAMPLE- COUMADIN, PLAVIX, AGGRENOX, PLATEL, PRADAXA, OR XARELTO) NO . WHEN WAS YOUR LAST DOSE? DATE: TIME: . LOW PLATELET COUNT NO . SICKLE CELL DISEASE NO . VON WILLIEBRANDS NO . FACTOR V LEIDEN NO . THALLASEMIA NO . ANEMIA NO . EASY BRUISING NO . NEUROLOGY: HAVE YOU FALLEN IN THE PAST 6 MONTHS? NO . ANY NEW EXTREMITY NUMBNESS OR WEAKNESS? NO . HEAD INJURY NO . DEMENTIA NO . CEREBRAL PALSY NO . MULTIPLE SCLEROSIS NO . DIZZINESS NO . HEADACHE NO . STROKES NO . VERTIGO NO . CARDIOLOGY: DO YOU HAVE A PACEMAKER OR DEFIBRILLATOR? NO . ANGINA NO . HEART ATTACK NO . HEART SURGERY NO . CONGESTIVE HEART FAILURE/FLUID OVERLOAD NO . CHEST PAIN NO . HIGH BLOOD PRESSURE NO . IRREGULAR HEART BEAT NO . RESPIRATORY: HAVE YOU BEEN SICK IN THE PAST WEEK? NO . FEVER NO . FLU LIKE SYMPTOMS? NO . CPAP NO . BYPAP NO . ASTHMA YES LAST ATTACK IN MAY AND HOSPITALIZED . EMPHYSEMA NO . CHRONIC LUNG DISEASES NO . SHORTNESS OF BREATH ON EXERTION NO . DO YOU USE ANY TYPE OF TOBACCO (SMOKE, SMOKELESS, CHEW)? NO . COUGH NO . SNORING NO . INTEGUMENTARY: DO YOU HAVE ANY RASHES OR OPEN SORES? NO . ALLERGIC/IMMUNO: ARE YOU ALLERGIC TO SHELLFISH OR IV DYE? NO . ANY NEW ALLERGIES? NO . PSYCHIATRIC: DO YOU HAVE THOUGHTS OF HURTING YOURSELF OR SOMEONE ELSE? NO . ARE YOU ABUSED, NEGLECTED, OR IN AN UNSAFE ENVIRONMENT? NO . ENDOCRINOLOGY: ARE YOU DIABETIC? NO . THYROID DISORDER NO . OTHER: DO YOU NEED ANY PRESCRIPTIONS? NO . IF YES, PLEASE LIST: ____ . ANY NEW PROBLEMS WITH YOUR MEDICATIONS? NO . WHEN DID YOU LAST EAT? ____ . WHEN DID YOU LAST DRINK? ____ . WHAT DID YOU LAST DRINK? ____ . NAME OF PERSON DRIVING YOU HOME? ____ . DO YOU HAVE ANY OTHER QUESTIONS OR CONCERNS NO . VITAL SIGNS WT 345.2 LBS, HT 63 IN, BMI 61.14 INDEX, BP 132/82 MM HG, HR 75 /MIN, RR 18 /MIN, TEMP 97.0 F, OXYGEN SAT % 99%, NA INITIALS SC 09:01, REVIEWED BY: KG. EXAMINATION GENERAL EXAMINATION: PATIENT IS ALERT O X 3 AND COOPERATIVE. TENDERNESS OVER THE RIGHT THORACIC AREA. PAIN INCREASES OVER THE RIGHT THORACIC FACET JOINTS WITH EXTENSION AND LATERAL ROTATION OF THE BACK. X-RAY OF THE THORACIC SPINE DONE ON 08/14/2017 SHOWS SPONDYLOSIS AND DEGENERATIVE CHANGES. MRI OF THE THORACIC SPINE DONE ON 08/01/2017 WAS A LIMITED EXAM DUE TO MOTION. ASSESSMENTS SPONDYLOSIS OF THORACIC REGION WITHOUT MYELOPATHY OR RADICULOPATHY - M47.814 (PRIMARY) PAIN IN THORACIC SPINE - M54.6 OTHER CHRONIC PAIN - G89.29 TREATMENT SPONDYLOSIS OF THORACIC REGION WITHOUT MYELOPATHY OR RADICULOPATHY CLINICAL NOTES: WE DISCUSSED SEVERAL ISSUES WITH MRS. SWANSON'S PAIN MANAGEMENT CASE. DUE TO THE THORACIC SPONDYLOSIS AND PAIN OVER THE AFFECTED FACET JOINTS, I WOULD LIKE TO MOVE FORWARD WITH A RIGHT T10-T11 AND RIGHT T11-T12 THORACIC THERAPEUTIC FACET BLOCK AT THIS TIME. THE PATIENT IS NOW GOING THROUGH AN ACUTE EXACERBATION OF HER CHRONIC CONDITION. WE DISCUSSED THE BENEFITS, RISKS, AND ALTERNATIVES OF THE INJECTION AND THE PATIENT WOULD LIKE TO PROCEED. THE PATIENT WILL FOLLOW UP AFTER THE INJECTION IN 6 WEEKS. INSTRUCTIONS WERE GIVEN, QUESTIONS WERE ANSWERED, PATIENT REPORTS UNDERSTANDING AND AGREES WITH THE PLAN. I, TERESITA ROSS, DOCUMENTED THE ABOVE INFORMATION ACTING A SCRIBE FOR DR. LIMA. I HAVE REVIEWED THE ABOVE DOCUMENT, WRITTEN BY TERESITA ERAZO AND I VERIFY THAT IT IS ACCURATE. PROCEDURES PN WORKMANS' COMP OPINION IN YOUR OPINION, WAS THE INCIDENT THAT THE PATIENT DESCRIBED THE COMPETENT MEDICAL CAUSE OF THIS INJURY/ILLNESS? YES ARE THE PATIENT'S COMPLAINTS CONSISTENT WITH HIS/HER HISTORY OF THE INJURY/ILLNESS? YES IS THE PATIENT'S HISTORY OF THE INJURY/ILLNESS CONSISTENT WITH YOUR OBJECTIVE FINDING? YES WHAT IS THE PERCENTAGE OF TEMPORARY IMPAIRMENT? MODERATE TO MARKED = 66.7% IS THE PATIENT WORKING? YES DOCTOR ON SITE: BREANNA GUARDADO MD PROCEDURE CODES FA211 ESTABILISHED PATIENT [facility] FACILITY CHARGE G8427 CURRENT MEDS W/DOSAGES DOCUMENTED G8730 PAIN ASSESS POS TOOL F/U PLAN DOC DISPOSITION & COMMUNICATION FOLLOW UP 6 WEEKS ELECTRONICALLY SIGNED BY BREANNA LIMA MD, MD ON 11/28/2018 AT 10:56 AM EST DISCLAIMER : THIS IS A VISIT SUMMARY EXTRACTED FROM THE [employer] CHART. IT IS NOT A COPY OF THE [employer] PROGRESS NOTE. JUAN PABLO
== END ==
LOC: M PAIN 08:30
PROVIDERS: ATTEND Anesthesiology
DX: M47.814 Spondylosis without myelopathy or radiculopathy, thoracic region (principal); M54.6 Pain in thoracic spine; G89.29 Other chronic pain; J45.909 Unspecified asthma, uncomplicated; G47.30 Sleep apnea, unspecified; E66.01 Morbid (severe) obesity due to excess calories; Z68.44 Body mass index [BMI] 60.0-69.9, adult; Z79.899 Other long term (current) drug therapy; Z88.2 Allergy status to sulfonamides

== ENCOUNTER → 2018-12-24 | Outpatient (CLI) | payer OTHER ==
--- NOTE | 2019-01-10 00:24 | ECWPNPC ---
PATIENT NAME: MYKE SWANSON : 1980 GENDER: FEMALE VISIT DATE: 12/24/2018 DISCHARGE DATE: 12/24/18 1224 VISIT LOCKED DATE TIME: PHYSICIAN: BREANNA LIMA MD RESOURCE: BREANNA LIMA MD REASON FOR APPOINTMENT 1. W/C, REVIEW MTG FOR PROCEDURE HISTORY OF PRESENT ILLNESS HISTORY OF PRESENT ILLNESS: PAIN THE PATIENT DESCRIBES THE PAIN... 38 YEAR OLD FEMALE PATIENT WITH A HISTORY OF CHRONIC THORACIC PAIN. THE PATIENT DESCRIBES THE PAIN ACHING, BURNING, TENDER, SHARP, STABBING, SHOOTING, AND CONTINUOUS WITH A PAIN SCORE OF 7-8/10 DEPENDING ON PHYSICAL ACTIVITY. 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 THE PATIENT SAYS THE PAIN IS MAINLY LOCATED ON HER RIGHT SIDE OF HER THORACIC AREA AND GOES TOWARD THE SIDE OF HER CHEST. THE PATIENT HAS DONE PHYSICAL THERAPY AND SAYS THAT IT HAS HELPED HER REMAIN MOBILE AND FUNCTIONAL. THE PATIENT STATES SHE ALSO USES A TENS UNIT. THE PATIENT IS CURRENTLY USING MELOXICAM AND LIDOCAINE PATCHES TO AID IN PAIN RELIEF. THE PATIENT SAYS THAT HER PAIN HAS INCREASED OVER THE PAST MONTH AND SHE HAS DIFFICULTIES DOING DAILY ACTIVITIES SUCH WORKING, COOKING, AND CLEANING DUE TO THIS INCREASED PAIN. PATIENT DENIES UNEXPLAINABLE WEIGHT LOSS, FEVER, CHILLS, NEW CHANGES ON HER URINARY OR BOWEL CONTROL. FALL RISK SCREENING: SCREENING : NO FALLS IN THE PAST YEAR. CURRENT MEDICATIONS TAKING VENTOLIN HFA 108 (90 BASE) MCG/ACT AEROSOL SOLUTION 2 PUFFS NEEDED INHALATION EVERY 6 HRS TAKING VITAMIN D 1000 UNIT CAPSULE 1 CAPSULE ORALLY ONCE A DAY TAKING TYLENOL 325 MG TABLET 1 TABLET NEEDED ORALLY EVERY 4 HRS TAKING VITAMIN B 12 500 MCG LOZENGE 2 LOZENGES ORALLY ONCE A DAY TAKING FLOVENT HFA 44 MCG/ACT AEROSOL 1 PUFF INHALATION TWICE A DAY TAKING MELOXICAM 7.5 MG TABLET 1 TABLET ORALLY ONCE A DAY TAKING VOLTAREN 1 % GEL TRANSDERMAL TAKING LIDOCAINE 5 % CREAM EXTERNALLY NOT-TAKING ADVAIR DISKUS 500-50 MCG/DOSE AEROSOL POWDER BREATH ACTIVATED 1 PUFF INHALATION TWICE A DAY MEDICATION LIST REVIEWED AND RECONCILED WITH THE PATIENT PAST MEDICAL HISTORY DEGENERATION OF LUMBAR INTERVERTABRAL DISC ASTHMA SLEP APNEA ALLERGIES SULFA (FOR ALLERGY USE ONLY) MANY ENVIRONMENTAL CATS/DOGS/MOLD /GRAS SURGICAL HISTORY NO SURGICAL HISTORY DOCUMENTED. FAMILY HISTORY FATHER: ALIVE MOTHER: SIBLINGS: ALIVE SOCIAL HISTORY GENERAL: TOBACCO USE ARE YOU A:NONSMOKER ALCOHOL SCREENING DID YOU HAVE A DRINK CONTAINING ALCOHOL IN THE PAST YEAR?NO POINTS0 INTERPRETATIONNEGATIVE CAFFEINE CAFFEINE USE?NO LANGUAGE LANGUAGES SPOKEN:[place] EDUCATION LEVEL OF EDUCATION:NOT FINISHED COLLEGE LEARNING BARRIERS / SPECIAL NEEDS SPECIAL DEVICES?YES CPAP USED OCCUPATION: DO YOU FEEL SAFE IN YOUR ENVIRONMENT? YES. DIET: DO YOU FEEL SAFE IN YOUR ENVIRONMENT? YES. EXERCISE: DAILY. MARITAL STATUS: DAILY. OTHERS AT HOME: SPOUSE. PAIN CLINIC PFS, CLERGY, PUBLIC HEALTH REFERRALS PFS REFERRAL NEEDED?NO CLERGY REFERRAL NEEDED?NO PUBLIC HEALTH REFERRAL NEEDED?NO WAS THE PROVIDER NOTIFIED OF ANY PERTINENT INFO?NO HAS THE PATIENT BEEN EDUCATED REGARDING HIS/HER PLAN OF CARE?YES HAS THE PATIENT BEEN EDUCATED REGARDING PAIN, THE RISK FOR PAIN, THE IMPORTANCE OF EFFECTIVE PAIN MANAGEMENT, AND THE PAIN ASSESSMENT PROCESS?YES HOUSING: OWNS HOME. ADVANCE DIRECTIVE ADVANCE DIRECTIVE DISCUSSED WITH PATIENT:YES HOSPITALIZATION/MAJOR DIAGNOSTIC PROCEDURE [facility] REVIEW OF SYSTEMS REVIEWED BY: PROVIDER: BREANNA LIMA MD . CONSTITUTIONAL: ANY CHANGE IN YOUR MEDICAL CONDITION? NO . CHILLS NO . FEVER NO . INFECTION: DO YOU HAVE NEW INFECTIONS? NO . DO YOU HAVE HISTORY OF MRSA? NO . MUSCULOSKELETAL: ANY NEW PATTERNS OF PAIN OR NUMBNESS? NO . GASTROENTEROLOGY: ANY NEW CHANGE IN BOWEL CONTROL? NO . GENITOURINARY: ANY NEW CHANGE IN BLADDER CONTROL? NO . IS THERE A CHANCE YOU COULD BE ? NO . HEMATOLOGY/LYMPH: DO YOU TAKE ANY BLOOD THINNERS? (FOR EXAMPLE- COUMADIN, PLAVIX, AGGRENOX, PLATEL, PRADAXA, OR XARELTO) NO . WHEN WAS YOUR LAST DOSE? DATE: TIME: . NEUROLOGY: HAVE YOU FALLEN IN THE PAST 12 MONTHS? NO . ANY NEW EXTREMITY NUMBNESS OR WEAKNESS? NO . CARDIOLOGY: DO YOU HAVE A PACEMAKER OR DEFIBRILLATOR? NO . RESPIRATORY: HAVE YOU BEEN SICK IN THE PAST WEEK? NO . FEVER NO . FLU LIKE SYMPTOMS? NO . COUGH NO . INTEGUMENTARY: DO YOU HAVE ANY RASHES OR OPEN SORES? NO . ALLERGIC/IMMUNO: ARE YOU ALLERGIC TO IV DYE? NO . ANY NEW ALLERGIES? NO . PSYCHIATRIC: DO YOU HAVE THOUGHTS OF HURTING YOURSELF OR SOMEONE ELSE? NO . ARE YOU ABUSED, NEGLECTED, OR IN AN UNSAFE ENVIRONMENT? NO . ENDOCRINOLOGY: ARE YOU DIABETIC? NO . OTHER: DO YOU NEED ANY PRESCRIPTIONS? NO . IF YES, PLEASE LIST: ____ . ANY NEW PROBLEMS WITH YOUR MEDICATIONS? NO . WHEN DID YOU LAST EAT? ____ . WHEN DID YOU LAST DRINK? ____ . WHAT DID YOU LAST DRINK? ____ . NAME OF PERSON DRIVING YOU HOME? ____ . DO YOU HAVE ANY OTHER QUESTIONS OR CONCERNS NO . VITAL SIGNS WT 347.2 LBS, HT 63 IN, BMI 61.50 INDEX, BP 141/71 MM HG, HR 81 /MIN, RR 18 /MIN, TEMP 97.2 F, OXYGEN SAT % 99%, NA INITIALS SC 08:55, REVIEWED BY: KG. EXAMINATION GENERAL EXAMINATION: PATIENT IS ALERT O X 3 AND COOPERATIVE. SEVERE TENDERNESS OVER THE RIGHT THORACIC AREA. PAIN INCREASES OVER THE RIGHT THORACIC FACET JOINTS WITH EXTENSION AND LATERAL ROTATION OF THE BACK. X-RAY OF THE THORACIC SPINE DONE ON 08/14/2017 SHOWS SPONDYLOSIS AND DEGENERATIVE CHANGES. MRI OF THE THORACIC SPINE DONE ON 08/01/2017 WAS A LIMITED EXAM DUE TO MOTION. ASSESSMENTS SPONDYLOSIS OF THORACIC REGION WITHOUT MYELOPATHY OR RADICULOPATHY - M47.814 (PRIMARY) TREATMENT SPONDYLOSIS OF THORACIC REGION WITHOUT MYELOPATHY OR RADICULOPATHY CLINICAL NOTES: WE DISCUSSED SEVERAL ISSUES WITH MRS. SWANSON'S PAIN MANAGEMENT CASE. THE PATIENT IS EXPERIENCING AN ACUTE EXACERBATION OF HER CHRONIC PAIN CONDITION, SO DUE TO THE INCREASED PAIN OVER THE THORACIC AREA AND THE THORACIC SPONDYLOSIS, I WOULD LIKE TO MOVE FORWARD WITH A RIGHT T10-T11, T11-T12 THERAPEUTIC THORACIC FACET BLOCK AT THIS TIME. WE DISCUSSED THE BENEFITS, RISKS, AND ALTERNATIVES OF THE INJECTION AND THE PATIENT WOULD LIKE TO PROCEED. THE PATIENT WILL FOLLOW UP IN 6 WEEKS. INSTRUCTIONS WERE GIVEN, QUESTIONS WERE ANSWERED, PATIENT REPORTS UNDERSTANDING AND AGREES WITH THE PLAN. I, TERESITA ROSS, DOCUMENTED THE ABOVE INFORMATION ACTING A SCRIBE FOR DR. LIMA. I HAVE REVIEWED THE ABOVE DOCUMENT, WRITTEN BY TERESITA ERAZO AND I VERIFY THAT IT IS ACCURATE. PROCEDURES PN WORKMANS' COMP OPINION IN YOUR OPINION, WAS THE INCIDENT THAT THE PATIENT DESCRIBED THE COMPETENT MEDICAL CAUSE OF THIS INJURY/ILLNESS? YES ARE THE PATIENT'S COMPLAINTS CONSISTENT WITH HIS/HER HISTORY OF THE INJURY/ILLNESS? YES IS THE PATIENT'S HISTORY OF THE INJURY/ILLNESS CONSISTENT WITH YOUR OBJECTIVE FINDING? YES WHAT IS THE PERCENTAGE OF TEMPORARY IMPAIRMENT? MODERATE TO MARKED = 66.7% IS THE PATIENT WORKING? YES DOCTOR ON SITE: BREANNA GUARDADO MD PROCEDURE CODES FA211 ESTABILISHED PATIENT [facility] FACILITY CHARGE G8427 CURRENT MEDS W/DOSAGES DOCUMENTED G8730 PAIN ASSESS POS TOOL F/U PLAN DOC DISPOSITION & COMMUNICATION FOLLOW UP 6 WEEKS (REASON: W/C THORACIC) ELECTRONICALLY SIGNED BY BREANNA LIMA MD, MD ON 01/09/2019 AT 01:37 PM EST DISCLAIMER : THIS IS A VISIT SUMMARY EXTRACTED FROM THE [employer] CHART. IT IS NOT A COPY OF THE [employer] PROGRESS NOTE. JUAN PABLO
== END ==
LOC: M PAIN 08:30
PROVIDERS: ATTEND Anesthesiology
DX: M47.814 Spondylosis without myelopathy or radiculopathy, thoracic region (principal); J45.909 Unspecified asthma, uncomplicated; G47.30 Sleep apnea, unspecified; Z88.2 Allergy status to sulfonamides; Z79.899 Other long term (current) drug therapy

== ENCOUNTER → 2019-02-11 | Outpatient (CLI) | payer OTHER ==
[~2019-02-11] MED LIST changes: -KETO2SH; +KETO2SHA9
== END ==
LOC: M PAIN 09:30
PROVIDERS: ATTEND Anesthesiology
DX: M47.814 Spondylosis without myelopathy or radiculopathy, thoracic region (principal); Z53.8 Procedure and treatment not carried out for other reasons

== ENCOUNTER → 2019-02-25 | Outpatient (CLI) | payer OTHER ==
--- NOTE | 2019-03-09 23:33 | ECWPNPC ---
PATIENT NAME: MYKE SWANSON : 1980 GENDER: FEMALE VISIT DATE: 02/25/2019 DISCHARGE DATE: 02/25/19 1058 VISIT LOCKED DATE TIME: PHYSICIAN: BREANNA LIMA MD RESOURCE: BREANNA LIMA MD REASON FOR APPOINTMENT 1. DISCUSS MTG GUIDELINES HISTORY OF PRESENT ILLNESS HISTORY OF PRESENT ILLNESS: PAIN THE PATIENT DESCRIBES THE PAIN... 39 YEAR OLD FEMALE PATIENT WITH A HISTORY OF CHRONIC THORACIC PAIN. THE PATIENT DESCRIBES THE PAIN ACHING, BURNING, STABBING, SHOOTING, SORE, TENDER, SHARP, AND CONTINUOUS WITH A PAIN SCORE OF 7-10/10 DEPENDING ON PHYSICAL ACTIVITY. 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 THE PATIENT SAYS HER PAIN RADIATES UP, DOWN, AND LATERALLY FROM HER THORACIC SPINE. THE PATIENT STATES PAST PHYSICAL THERAPY HAS HELPED WITH FUNCTIONALITY, BUT NOT ENOUGH TO PERFORM NORMAL DAILY ACTIVITIES SUCH HOUSE CLEANING, WORKING, AND GROCERY SHOPPING. THE PATIENT STATES SHE IS ALSO USING A TENS UNIT AND HER MELOXICAM AND TIZANIDINE FOR PAIN RELIEF. PATIENT DENIES UNEXPLAINABLE WEIGHT LOSS, FEVER, CHILLS, NEW CHANGES ON HER URINARY OR BOWEL CONTROL. FALL RISK SCREENING: SCREENING :NO FALLS REPORTED IN THE LAST YEAR CURRENT MEDICATIONS TAKING VENTOLIN HFA 108 (90 BASE) MCG/ACT AEROSOL SOLUTION 2 PUFFS NEEDED INHALATION EVERY 6 HRS TAKING VITAMIN D 1000 UNIT CAPSULE 1 CAPSULE ORALLY ONCE A DAY TAKING TYLENOL 325 MG TABLET 1 TABLET NEEDED ORALLY EVERY 4 HRS TAKING MELOXICAM 7.5 MG TABLET 1 TABLET ORALLY ONCE A DAY TAKING LIDOCAINE 5 % CREAM EXTERNALLY , NOTES: PATCHES TAKING TIZANIDINE HCL 4 MG TABLET 1 TABLET NEEDED ORALLY THREE TIMES A DAY NOT-TAKING VITAMIN B 12 500 MCG LOZENGE 2 LOZENGES ORALLY ONCE A DAY NOT-TAKING FLOVENT HFA 44 MCG/ACT AEROSOL 1 PUFF INHALATION TWICE A DAY NOT-TAKING VOLTAREN 1 % GEL TRANSDERMAL NOT-TAKING ADVAIR DISKUS 500-50 MCG/DOSE AEROSOL POWDER BREATH ACTIVATED 1 PUFF INHALATION TWICE A DAY MEDICATION LIST REVIEWED AND RECONCILED WITH THE PATIENT PAST MEDICAL HISTORY DEGENERATION OF LUMBAR INTERVERTABRAL DISC ASTHMA SLEEP APNEA BACK PAIN ALLERGIES SULFA (FOR ALLERGY USE ONLY) MANY ENVIRONMENTAL CATS/DOGS/MOLD /GRAS QUINOLONES: ANAPHYLAXIS - ALLERGY SURGICAL HISTORY DENIES PAST SURGICAL HISTORY FAMILY HISTORY FATHER: ALIVE MOTHER: SIBLINGS: ALIVE SOCIAL HISTORY GENERAL: TOBACCO USE ARE YOU A:NONSMOKER LATEX QUESTIONNAIRE LATEX ALLERGY : HAVE YOU EVER DEVELOPED ANY TYPE OF REACTION AFTER HANDLING LATEX PRODUCTS SUCH RUBBER GLOVES, CONDOMS, DIAPHRAGMS, BALLOONS, SOCKS, OR UNDERWEAR?YES - PLEASE INDICATE :RUBBER GLOVES LATEX ALLERGY : HAVE YOU EVER DEVELOPED ANY TYPE OF REACTION DURING OR AFTER DENTAL APPOINTMENT, VAGINAL/RECTAL EXAMINATION, SURGICAL PROCEDURE, OR ANY OTHER EXPOSURE?NO LATEX RISK : HAVE YOU EVER HAD ANY DIFFICULTY BREATHING OR HIVES AFTER EATING OR HANDLING ANY FRUITS, OR VEGETABLES; SUCH KIWI, BANANAS, STONE FRUITS, OR CHESTNUTSNO LATEX RISK : DO YOU HAVE A PREVIOUS PERSONAL HISTORY OF MORE THAN NINE SURGERIES, SPINA BIFIDA, OR REPEATED CATHERTIZATIONS? NO LATEX RISK : ARE YOU FREQUENTLY EXPOSED TO LATEX PRODUCTS IN YOUR OCCUPATION?NO DATE ASKED : 02/25/2019 ALCOHOL SCREENING DID YOU HAVE A DRINK CONTAINING ALCOHOL IN THE PAST YEAR?NO POINTS0 INTERPRETATIONNEGATIVE RECREATIONAL DRUG USE DRUG USE?NO CAFFEINE CAFFEINE USE?NO LANGUAGE LANGUAGES SPOKEN:CAMBODIAN EDUCATION LEVEL OF EDUCATION:NOT FINISHED COLLEGE LEARNING BARRIERS / SPECIAL NEEDS SPECIAL DEVICES?YES CPAP USED OCCUPATION: DO YOU FEEL SAFE IN YOUR ENVIRONMENT? YES. DIET: DO YOU FEEL SAFE IN YOUR ENVIRONMENT? YES. EXERCISE: DAILY. MARITAL STATUS: DAILY. OTHERS AT HOME: SPOUSE. PAIN CLINIC PFS, CLERGY, PUBLIC HEALTH REFERRALS PFS REFERRAL NEEDED?NO CLERGY REFERRAL NEEDED?NO PUBLIC HEALTH REFERRAL NEEDED?NO WAS THE PROVIDER NOTIFIED OF ANY PERTINENT INFO?NO HAS THE PATIENT BEEN EDUCATED REGARDING HIS/HER PLAN OF CARE?YES HAS THE PATIENT BEEN EDUCATED REGARDING PAIN, THE RISK FOR PAIN, THE IMPORTANCE OF EFFECTIVE PAIN MANAGEMENT, AND THE PAIN ASSESSMENT PROCESS?YES HOUSING: OWNS HOME. ADVANCE DIRECTIVE ADVANCE DIRECTIVE DISCUSSED WITH PATIENT:YES HCP INFORMATION GIVEN AT THIS TIME, PATIENT DECLINED ASSISTANCE IN FILLING OUT. REVIEWED WITH PATIENT 02/25/19 4172 FRANCISCO. HOSPITALIZATION/MAJOR DIAGNOSTIC PROCEDURE ASTHMA ATACK REVIEW OF SYSTEMS REVIEWED BY: PROVIDER: BREANNA LIMA MD . CONSTITUTIONAL: ANY CHANGE IN YOUR MEDICAL CONDITION? NO . CHILLS NO . FEVER NO . INFECTION: DO YOU HAVE NEW INFECTIONS? NO . DO YOU HAVE HISTORY OF MRSA? NO . MUSCULOSKELETAL: ANY NEW PATTERNS OF PAIN OR NUMBNESS? YES, STATES PAIN WORSENING, PATIENT HAVING DIFFICULTY SLEEPING, CAN'T DO ANY OF THE ACTIVITIES THAT SHE USED TO ENJOY . GASTROENTEROLOGY: ANY NEW CHANGE IN BOWEL CONTROL? NO . GENITOURINARY: ANY NEW CHANGE IN BLADDER CONTROL? NO . IS THERE A CHANCE YOU COULD BE ? NO . HEMATOLOGY/LYMPH: DO YOU TAKE ANY BLOOD THINNERS? (FOR EXAMPLE- COUMADIN, PLAVIX, AGGRENOX, PLATEL, PRADAXA, OR XARELTO) NO . WHEN WAS YOUR LAST DOSE? DATE: TIME: . NEUROLOGY: HAVE YOU FALLEN IN THE PAST 12 MONTHS? NO . ANY NEW EXTREMITY NUMBNESS OR WEAKNESS? NO . CARDIOLOGY: DO YOU HAVE A PACEMAKER OR DEFIBRILLATOR? NO . RESPIRATORY: HAVE YOU BEEN SICK IN THE PAST WEEK? NO . FEVER NO . FLU LIKE SYMPTOMS? NO . COUGH NO . INTEGUMENTARY: DO YOU HAVE ANY RASHES OR OPEN SORES? NO . ALLERGIC/IMMUNO: ARE YOU ALLERGIC TO IV DYE? NO . ANY NEW ALLERGIES? NO . PSYCHIATRIC: DO YOU HAVE THOUGHTS OF HURTING YOURSELF OR SOMEONE ELSE? NO . ARE YOU ABUSED, NEGLECTED, OR IN AN UNSAFE ENVIRONMENT? NO . ENDOCRINOLOGY: ARE YOU DIABETIC? NO . OTHER: DO YOU NEED ANY PRESCRIPTIONS? NO . IF YES, PLEASE LIST: ____ . ANY NEW PROBLEMS WITH YOUR MEDICATIONS? NO . WHEN DID YOU LAST EAT? ____ . WHEN DID YOU LAST DRINK? ____ . WHAT DID YOU LAST DRINK? ____ . NAME OF PERSON DRIVING YOU HOME? ____ . DO YOU HAVE ANY OTHER QUESTIONS OR CONCERNS YES, STATES SHE IS IN PAIN ALL THE TIME AND CAN'T DO THE ACTIVITIES THAT SHE USED TO ENJOY. STATES SHE JUST WANTS TO IMPROVE HER QUALITY OF LIFE . VITAL SIGNS WT 347 LBS, HT 63 IN, BMI 61.46 INDEX, BP 137/76 MM HG, HR 87 /MIN, RR 18 /MIN, TEMP 98.1 F, OXYGEN SAT % 97%, SAFE IN ENV? (Y/N) YES, NA INITIALS AW 0904, REVIEWED BY: FRANCISCO. EXAMINATION GENERAL EXAMINATION: TENDERNESS OVER THE RIGHT THORACIC AREA. PAIN INCREASES OVER THE RIGHT THORACIC FACET JOINTS WITH EXTENSION AND LATERAL ROTATION OF THE BACK AT T7-8, T8-9, AND T9-10 LEVELS. MRI OF THE LUMBAR SPINE DONE ON 08/01/2017 WAS A LIMITED STUDY DUE TO MOTION. X-RAY OF THE THORACIC SPINE PERFORMED ON 08/14/2017 SHOWS SOME SPONDYLOSIS AND DEGENERATIVE DISC CHANGES. ASSESSMENTS SPONDYLOSIS OF THORACIC REGION WITHOUT MYELOPATHY OR RADICULOPATHY - M47.814 (PRIMARY) TREATMENT SPONDYLOSIS OF THORACIC REGION WITHOUT MYELOPATHY OR RADICULOPATHY CLINICAL NOTES: WE DISCUSSED SEVERAL ISSUES WITH MS. SWANSON'S PAIN MANAGEMENT CASE. DUE TO THE THORACIC SPONDYLOSIS, I WOULD LIKE TO MOVE FORWARD WITH A RIGHT T9-T10 AND T11-12 THERAPEUTIC THORACIC FACET BLOCK AT THIS TIME. WE DISCUSSED THE BENEFITS, RISKS, AND ALTERNATIVES OF THE INJECTION AND THE PATIENT WOULD LIKE TO PROCEED. THE PATIENT WILL FOLLOWUP IN 6 WEEKS. INSTRUCTIONS WERE GIVEN, QUESTIONS WERE ANSWERED, PATIENT REPORTS UNDERSTANDING AND AGREES WITH THE PLAN. I, KIAN MANLEY, DOCUMENTED THE ABOVE INFORMATION ACTING A SCRIBE FOR DR. LIMA. I HAVE REVIEWED THE ABOVE DOCUMENT, WRITTEN BY KIAN ERAZO AND I VERIFY THAT IT IS ACCURATE. . PROCEDURES PN WORKMANS' COMP OPINION IN YOUR OPINION, WAS THE INCIDENT THAT THE PATIENT DESCRIBED THE COMPETENT MEDICAL CAUSE OF THIS INJURY/ILLNESS? YES ARE THE PATIENT'S COMPLAINTS CONSISTENT WITH HIS/HER HISTORY OF THE INJURY/ILLNESS? YES IS THE PATIENT'S HISTORY OF THE INJURY/ILLNESS CONSISTENT WITH YOUR OBJECTIVE FINDING? YES WHAT IS THE PERCENTAGE OF TEMPORARY IMPAIRMENT? MODERATE TO MARKED = 66.7% IS THE PATIENT WORKING? YES DOCTOR ON SITE: BREANNA GUARDADO MD PREVENTIVE MEDICINE PAIN CLINIC TEACHING: PROCEDURE TEACHING REVIEWED INFORMATION ON FACET JOINT INJECTION WITH PATIENT. ALSO REVIEWED PRE-PROCEDURE INSTRUCTIONS. PATIENT VERBALIZED AN UNDERSTANDING. SAIRA BONE 02/25/2019 10:57:56 AM > . PROCEDURE CODES FA211 ESTABILISHED PATIENT [facility] FACILITY CHARGE G8427 CURRENT MEDS W/DOSAGES DOCUMENTED G8730 PAIN ASSESS POS TOOL F/U PLAN DOC DISPOSITION & COMMUNICATION FOLLOW UP 6 WEEKS ELECTRONICALLY SIGNED BY BREANNA LIMA MD, MD ON 03/09/2019 AT 11:50 AM EDT DISCLAIMER : THIS IS A VISIT SUMMARY EXTRACTED FROM THE [facility] CHART. IT IS NOT A COPY OF THE [facility] PROGRESS NOTE. RUBIND
== END ==
LOC: M PAIN 08:45
PROVIDERS: ATTEND Anesthesiology
DX: M47.814 Spondylosis without myelopathy or radiculopathy, thoracic region (principal); G89.29 Other chronic pain; J45.909 Unspecified asthma, uncomplicated; G47.30 Sleep apnea, unspecified; Z88.1 Allergy status to other antibiotic agents; Z88.2 Allergy status to sulfonamides; E66.01 Morbid (severe) obesity due to excess calories; Z68.44 Body mass index [BMI] 60.0-69.9, adult; Z79.1 Long term (current) use of non-steroidal anti-inflammatories (NSAID); Z79.899 Other long term (current) drug therapy

== ENCOUNTER → 2019-04-15 | Outpatient (CLI) | payer OTHER ==
--- NOTE | 2019-04-26 02:20 | ECWPNPC ---
PATIENT NAME: MYKE SWANSON : 1980 GENDER: FEMALE VISIT DATE: 04/15/2019 DISCHARGE DATE: 04/15/19 1406 VISIT LOCKED DATE TIME: PHYSICIAN: BREANNA LIMA MD RESOURCE: BREANNA LIMA MD REASON FOR APPOINTMENT 1. W/C BACK HISTORY OF PRESENT ILLNESS HISTORY OF PRESENT ILLNESS: PAIN THE PATIENT DESCRIBES THE PAIN... 39 YEAR OLD FEMALE PATIENT WITH A HISTORY OF CHRONIC THORACIC PAIN. THE PATIENT DESCRIBES THE PAIN ACHING, SORE, TENDER, SHARP, STABBING, SHOOTING, AND CONTINUOUS WITH A PAIN SCORE OF 7-10/10 DEPENDING ON PHYSICAL ACTIVITY. 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 THE PATIENT SAYS SHE TRIED PHYSICAL THERAPY IN THE PAST AND IT HELPED SOME, SO SHE CONTINUES TO DO AT HOME EXERCISES BUT SHE STILL HAD DIFFICULTY WITH ACTIVITIES OF DAILY LIVING. THE PATIENT SAYS THAT HER HAS TO DO EVERYTHING AROUND THE HOUSE SUCH COOKING, CLEANING, LAUNDRY, AND GROCERIES DUE TO THE SEVERITY OF HER PAIN. THE PATIENT STATES THAT SHE HAS VERY LIMITED MOBILITY AND FUNCTIONALITY. THE PATIENT STATES SHE IS UNABLE TO WASH HER BACK IN THE SHOWER, VOLUNTEER, SWIM, OR TRAVEL ANYWHERE THAT IS FURTHER THAN AN HOUR AWAY. THE PATIENT STATES THAT SHE HAS EXTREME DIFFICULTIES DRIVING DUE TO THE LOSS OF RANGE OF MOTION AND IS UNABLE TO LOOK AROUND. THE PATIENT SAYS SHE IS UNABLE TO BEND FORWARD OR TURN TO HER RIGHT SIDE WITHOUT EXTREME PAIN IN HER BACK. THE PATIENT REPORTS HAVING TO CALL OFF WORK MORE OFTEN DUE TO HER PAIN. THE PATIENT SAYS THAT WHEN HER PAIN INCREASES SHE IS UNABLE TO HOLD HER PHONE IN HER RIGHT HAND DUE TO WEAKNESS AND IS UNABLE TO HOLD MORE THAN 5 POUNDS IN HER RIGHT HAND CURRENTLY. THE PATIENT SAYS THAT SHE HAS DIFFICULTIES SLEEPING AT NIGHT AND WAKES UP SEVERAL TIMES THROUGHOUT THE NIGHT DUE TO THIS PAIN. THE PATIENT IS CURRENTLY USING MELOXICAM, TIZANIDINE, AND HER TENS UNIT TO AID IN PAIN RELIEF. PATIENT DENIES UNEXPLAINABLE WEIGHT LOSS, FEVER, CHILLS, NEW CHANGES ON HER URINARY OR BOWEL CONTROL. FALL RISK SCREENING: SCREENING :NO FALLS REPORTED IN THE LAST YEAR CURRENT MEDICATIONS TAKING VENTOLIN HFA 108 (90 BASE) MCG/ACT AEROSOL SOLUTION 2 PUFFS NEEDED INHALATION EVERY 6 HRS TAKING VITAMIN D 1000 UNIT CAPSULE 1 CAPSULE ORALLY ONCE A DAY TAKING TYLENOL 325 MG TABLET 1 TABLET NEEDED ORALLY EVERY 4 HRS TAKING MELOXICAM 7.5 MG TABLET 1 TABLET ORALLY ONCE A DAY TAKING LIDOCAINE 5 % CREAM EXTERNALLY , NOTES: PATCHES TAKING TIZANIDINE HCL 4 MG TABLET 1 TABLET NEEDED ORALLY THREE TIMES A DAY NOT-TAKING VITAMIN B 12 500 MCG LOZENGE 2 LOZENGES ORALLY ONCE A DAY NOT-TAKING FLOVENT HFA 44 MCG/ACT AEROSOL 1 PUFF INHALATION TWICE A DAY NOT-TAKING VOLTAREN 1 % GEL TRANSDERMAL NOT-TAKING ADVAIR DISKUS 500-50 MCG/DOSE AEROSOL POWDER BREATH ACTIVATED 1 PUFF INHALATION TWICE A DAY MEDICATION LIST REVIEWED AND RECONCILED WITH THE PATIENT PAST MEDICAL HISTORY DEGENERATION OF LUMBAR INTERVERTABRAL DISC ASTHMA SLEEP APNEA BACK PAIN ALLERGIES SULFA (FOR ALLERGY USE ONLY) MANY ENVIRONMENTAL CATS/DOGS/MOLD /GRAS QUINOLONES: ANAPHYLAXIS - ALLERGY SURGICAL HISTORY DENIES PAST SURGICAL HISTORY FAMILY HISTORY FATHER: ALIVE MOTHER: SIBLINGS: ALIVE SOCIAL HISTORY GENERAL: TOBACCO USE ARE YOU A:NONSMOKER OTHERS AT HOME: SPOUSE. HOUSING: OWNS HOME. EDUCATION LEVEL OF EDUCATION:NOT FINISHED COLLEGE DIET: DO YOU FEEL SAFE IN YOUR ENVIRONMENT? YES. LANGUAGE LANGUAGES SPOKEN:OCCITAN RECREATIONAL DRUG USE DRUG USE?NO EXERCISE: DAILY. LEARNING BARRIERS / SPECIAL NEEDS SPECIAL DEVICES?YES CPAP USED PAIN CLINIC PFS, CLERGY, PUBLIC HEALTH REFERRALS PFS REFERRAL NEEDED?NO CLERGY REFERRAL NEEDED?NO PUBLIC HEALTH REFERRAL NEEDED?NO WAS THE PROVIDER NOTIFIED OF ANY PERTINENT INFO?NO HAS THE PATIENT BEEN EDUCATED REGARDING HIS/HER PLAN OF CARE?YES HAS THE PATIENT BEEN EDUCATED REGARDING PAIN, THE RISK FOR PAIN, THE IMPORTANCE OF EFFECTIVE PAIN MANAGEMENT, AND THE PAIN ASSESSMENT PROCESS?YES LATEX QUESTIONNAIRE LATEX ALLERGY : HAVE YOU EVER DEVELOPED ANY TYPE OF REACTION AFTER HANDLING LATEX PRODUCTS SUCH RUBBER GLOVES, CONDOMS, DIAPHRAGMS, BALLOONS, SOCKS, OR UNDERWEAR?YES - PLEASE INDICATE :RUBBER GLOVES LATEX ALLERGY : HAVE YOU EVER DEVELOPED ANY TYPE OF REACTION DURING OR AFTER DENTAL APPOINTMENT, VAGINAL/RECTAL EXAMINATION, SURGICAL PROCEDURE, OR ANY OTHER EXPOSURE?NO LATEX RISK : HAVE YOU EVER HAD ANY DIFFICULTY BREATHING OR HIVES AFTER EATING OR HANDLING ANY FRUITS, OR VEGETABLES; SUCH KIWI, BANANAS, STONE FRUITS, OR CHESTNUTSNO LATEX RISK : DO YOU HAVE A PREVIOUS PERSONAL HISTORY OF MORE THAN NINE SURGERIES, SPINA BIFIDA, OR REPEATED CATHERTIZATIONS? NO LATEX RISK : ARE YOU FREQUENTLY EXPOSED TO LATEX PRODUCTS IN YOUR OCCUPATION?NO DATE ASKED : 02/25/2019 CAFFEINE CAFFEINE USE?NO ADVANCE DIRECTIVE ADVANCE DIRECTIVE DISCUSSED WITH PATIENT:YES HCP INFORMATION GIVEN AT PREVIOUS APPOINTMENT, PATIENT DECLINED ASSISTANCE IN FILLING OUT. MARITAL STATUS: DAILY. ALCOHOL SCREENING DID YOU HAVE A DRINK CONTAINING ALCOHOL IN THE PAST YEAR?NO POINTS0 INTERPRETATIONNEGATIVE OCCUPATION: DO YOU FEEL SAFE IN YOUR ENVIRONMENT? YES. REVIEWED WITH PATIENT 02/25/19 0991 JSREVIEWED WITH PATIENT 04/15/19 1326 JS. HOSPITALIZATION/MAJOR DIAGNOSTIC PROCEDURE ASTHMA ATACK REVIEW OF SYSTEMS REVIEWED BY: PROVIDER: BREANNA LIMA MD . CONSTITUTIONAL: ANY CHANGE IN YOUR MEDICAL CONDITION? NO . CHILLS NO . FEVER NO . INFECTION: DO YOU HAVE NEW INFECTIONS? NO . DO YOU HAVE HISTORY OF MRSA? NO . MUSCULOSKELETAL: ANY NEW PATTERNS OF PAIN OR NUMBNESS? NO . GASTROENTEROLOGY: ANY NEW CHANGE IN BOWEL CONTROL? NO . GENITOURINARY: ANY NEW CHANGE IN BLADDER CONTROL? NO . IS THERE A CHANCE YOU COULD BE ? NO . HEMATOLOGY/LYMPH: DO YOU TAKE ANY BLOOD THINNERS? (FOR EXAMPLE- COUMADIN, PLAVIX, AGGRENOX, PLATEL, PRADAXA, OR XARELTO) NO . WHEN WAS YOUR LAST DOSE? DATE: TIME: . NEUROLOGY: HAVE YOU FALLEN IN THE PAST 12 MONTHS? NO . ANY NEW EXTREMITY NUMBNESS OR WEAKNESS? NO . CARDIOLOGY: DO YOU HAVE A PACEMAKER OR DEFIBRILLATOR? NO . RESPIRATORY: HAVE YOU BEEN SICK IN THE PAST WEEK? NO . FEVER NO . FLU LIKE SYMPTOMS? NO . COUGH NO . INTEGUMENTARY: DO YOU HAVE ANY RASHES OR OPEN SORES? NO . ALLERGIC/IMMUNO: ARE YOU ALLERGIC TO IV DYE? NO . ANY NEW ALLERGIES? NO . PSYCHIATRIC: DO YOU HAVE THOUGHTS OF HURTING YOURSELF OR SOMEONE ELSE? NO . ARE YOU ABUSED, NEGLECTED, OR IN AN UNSAFE ENVIRONMENT? NO . ENDOCRINOLOGY: ARE YOU DIABETIC? NO . OTHER: DO YOU NEED ANY PRESCRIPTIONS? NO . IF YES, PLEASE LIST: ____ . ANY NEW PROBLEMS WITH YOUR MEDICATIONS? NO . WHEN DID YOU LAST EAT? ____ . WHEN DID YOU LAST DRINK? ____ . WHAT DID YOU LAST DRINK? ____ . NAME OF PERSON DRIVING YOU HOME? ____ . DO YOU HAVE ANY OTHER QUESTIONS OR CONCERNS YES, WOULD LIKE TO KNOW WHAT SHE CAN DO OR WHAT ELSE IS AVAILABLE TO HELP WITH THE PAIN - W/C DENIED FACET BLOCK . VITAL SIGNS WT 357 LBS, HT 63 IN, BMI 63.23 INDEX, BP 134/74 MM HG, HR 93 /MIN, RR 18 /MIN, TEMP 98.0 F, OXYGEN SAT % 98%, SAFE IN ENV? (Y/N) YES, NA INITIALS AW 1317, REVIEWED BY: JS. EXAMINATION GENERAL EXAMINATION: PATIENT IS ALERT O X 3 AND COOPERATIVE. TENDERNESS IN THE THORACIC AREA. PAIN INCREASES OVER THE THORACIC FACET JOINTS WITH EXTENSION AND LATERAL ROTATION OF THE BACK. MRI OF THE LUMBAR SPINE DONE ON 08/01/2017 WAS A LIMITED STUDY DUE TO MOTION. X-RAY OF THE THORACIC SPINE DONE ON 08/14/2017 SHOWS THORACIC FACET ARTHROPATHY CHANGES. ASSESSMENTS SPONDYLOSIS OF THORACIC REGION WITHOUT MYELOPATHY OR RADICULOPATHY - M47.814 (PRIMARY) TREATMENT SPONDYLOSIS OF THORACIC REGION WITHOUT MYELOPATHY OR RADICULOPATHY CLINICAL NOTES: WE DISCUSSED SEVERAL ISSUES WITH MRS. SWANSON'S PAIN MANAGEMENT CASE. DUE TO THE THORACIC SPONDYLOSIS AND THE PATIENT HAVING AN ACUTE EXACERBATION OF HER CHRONIC PAIN CONDITION, I WOULD LIKE TO MOVE FORWARD WITH A RIGHT T9-T10, T11-T12 THORACIC THERAPEUTIC FACET BLOCK AT THIS TIME. WE DISCUSSED THE BENEFITS, RISKS, AND ALTERNATIVES OF THE INJECTION AND THE PATIENT WOULD LIKE TO PROCEED. I AM LOOKING TO REDUCE THE PATIENT'S PAIN AND INCREASE HER MOBILITY AND FUNCTIONALITY SO SHE IS ABLE TO PERFORM ACTIVITIES OF DAILY LIVING. THE PATIENT WILL FOLLOW UP IN 3 MONTHS. INSTRUCTIONS WERE GIVEN, QUESTIONS WERE ANSWERED, PATIENT REPORTS UNDERSTANDING AND AGREES WITH THE PLAN. I, TERESITA ROSS, DOCUMENTED THE ABOVE INFORMATION ACTING A SCRIBE FOR DR. LIMA. I HAVE REVIEWED THE ABOVE DOCUMENT, WRITTEN BY TERESITA ERAZO AND I VERIFY THAT IT IS ACCURATE. . PROCEDURES PN WORKMANS' COMP OPINION IN YOUR OPINION, WAS THE INCIDENT THAT THE PATIENT DESCRIBED THE COMPETENT MEDICAL CAUSE OF THIS INJURY/ILLNESS? YES ARE THE PATIENT'S COMPLAINTS CONSISTENT WITH HIS/HER HISTORY OF THE INJURY/ILLNESS? YES IS THE PATIENT'S HISTORY OF THE INJURY/ILLNESS CONSISTENT WITH YOUR OBJECTIVE FINDING? YES WHAT IS THE PERCENTAGE OF TEMPORARY IMPAIRMENT? MODERATE TO MARKED = 66.7% IS THE PATIENT WORKING? YES DOCTOR ON SITE: BREANNA GUARDADO MD PREVENTIVE MEDICINE PAIN CLINIC TEACHING: PROCEDURE TEACHING RE-PRINTED PRE-PROCEDURE INSTRUCTIONS AND GIVEN TO PATIENT. SAIRA BONE Regino 04/15/2019 2:07:40 PM > . PROCEDURE CODES FA211 ESTABILISHED PATIENT [facility] FACILITY CHARGE G8427 CURRENT MEDS W/DOSAGES DOCUMENTED G8730 PAIN ASSESS POS TOOL F/U PLAN DOC DISPOSITION & COMMUNICATION FOLLOW UP 3 MONTHS (REASON: W/C BACK) ELECTRONICALLY SIGNED BY BREANNA LIMA MD, MD ON 04/25/2019 AT 12:18 PM EDT DISCLAIMER : THIS IS A VISIT SUMMARY EXTRACTED FROM THE [email or web address] CHART. IT IS NOT A COPY OF THE [email or web address] PROGRESS NOTE. MTDD
== END ==
LOC: M PAIN 13:00
PROVIDERS: ATTEND Anesthesiology
DX: M47.814 Spondylosis without myelopathy or radiculopathy, thoracic region (principal); Z79.899 Other long term (current) drug therapy; Z88.2 Allergy status to sulfonamides; J30.2 Other seasonal allergic rhinitis; Z88.8 Allergy status to other drugs, medicaments and biological substances

== ENCOUNTER → 2019-06-16 | Outpatient (CLI) | payer OTHER ==
[~2019-06-16] MED LIST changes: +BUPIVACAINE HCL 0.25% 30 ML VIAL As Ordered ONE; +CYAN500T8 PO; +ISOVUE-M 200 41% 20ML VIAL (Q9966) As Ordered ONE; +LIDOCAINE 1% SDV INJ 30 ML VIAL As Ordered ONE; -OMEP20CA3; +OMEP20CA4; +TRIAMCINOLONE ACETONIDE SUSP 40 MG/ML VIAL (J3301) As Ordered ONE; -VITA500T3 PO
--- NOTE | 2019-06-16 17:31 | REP ---
HISTORY: Status post procedure. Assess for pneumothorax. Two AP views and one lateral view were obtained. The AP views were obtained with both inspiratory and expiratory effort. FINDINGS: The superior mediastinal structures are midline. The cardiac silhouette is unremarkable in size, shape and position. The diaphragmatic surfaces of the lungs are regular and the costophrenic angles are clear. The pulmonary christine are clear. The imaged osseous structures are intact. IMPRESSION: There is no acute cardiopulmonary disease. Electronically Signed by Freddy Young DO 06/17/2019 10:30 A
--- NOTE | 2019-06-16 21:39 | REP ---
C-ARM VIEWS THORACIC SPINE: Clinical history: Pain. Two C-Arm views lower thoracic spine performed during injection performed by Dr. Wood. Two needles are seen in the lower thoracic region. 10 seconds fluoroscopy time utilized. Electronically Signed by Dinh Wilburn MD 06/17/2019 10:05 A
--- NOTE | 2019-06-29 01:29 | ECWPNPC ---
PATIENT NAME: MYKE SWANSON : 1980 GENDER: FEMALE VISIT DATE: 06/16/2019 DISCHARGE DATE: 06/16/19 1721 VISIT LOCKED DATE TIME: PHYSICIAN: BREANNA LIMA MD RESOURCE: BREANNA LIMA MD REASON FOR APPOINTMENT 1. WC THERAPEUTIC LUMBAR FACET BLOCK HISTORY OF PRESENT ILLNESS HISTORY OF PRESENT ILLNESS: PAIN THE PATIENT DESCRIBES THE PAIN... FALL RISK SCREENING: SCREENING :NO FALLS REPORTED IN THE LAST YEAR CURRENT MEDICATIONS TAKING VENTOLIN HFA 108 (90 BASE) MCG/ACT AEROSOL SOLUTION 2 PUFFS NEEDED INHALATION EVERY 6 HRS, NOTES: LAST WEEK TAKING VITAMIN D 1000 UNIT CAPSULE 1 CAPSULE ORALLY ONCE A DAY, NOTES: NONE LATELY TAKING TYLENOL 325 MG TABLET 1 TABLET NEEDED ORALLY EVERY 4 HRS, NOTES: NONE LATELY TAKING MELOXICAM 7.5 MG TABLET 1 TABLET ORALLY ONCE A DAY, NOTES: 06/15/19 TAKING LIDOCAINE 5 % CREAM EXTERNALLY , NOTES: LAST WEEK TAKING TIZANIDINE HCL 4 MG TABLET 1 TABLET NEEDED ORALLY THREE TIMES A DAY, NOTES: 06/15/19 TAKING VITAMIN B 12 500 MCG LOZENGE 2 LOZENGES ORALLY ONCE A DAY, NOTES: NONE LATELY TAKING FLOVENT HFA 44 MCG/ACT AEROSOL 1 PUFF INHALATION TWICE A DAY, NOTES: NONE LATELY TAKING VOLTAREN 1 % GEL TRANSDERMAL , NOTES: NONE LATELY TAKING ADVAIR DISKUS 500-50 MCG/DOSE AEROSOL POWDER BREATH ACTIVATED 1 PUFF INHALATION TWICE A DAY, NOTES: NONE LATELY MEDICATION LIST REVIEWED AND RECONCILED WITH THE PATIENT PAST MEDICAL HISTORY DEGENERATION OF LUMBAR INTERVERTABRAL DISC ASTHMA SLEEP APNEA BACK PAIN ALLERGIES SULFA (FOR ALLERGY USE ONLY) MANY ENVIRONMENTAL CATS/DOGS/MOLD /GRAS QUINOLONES: ANAPHYLAXIS - ALLERGY SURGICAL HISTORY WISDOM TEETH REMOVED FAMILY HISTORY FATHER: ALIVE MOTHER: SIBLINGS: ALIVE SOCIAL HISTORY GENERAL: TOBACCO USE ARE YOU A:NONSMOKER OTHERS AT HOME: SPOUSE. HOUSING: OWNS HOME. EDUCATION LEVEL OF EDUCATION:NOT FINISHED COLLEGE DIET: DO YOU FEEL SAFE IN YOUR ENVIRONMENT? YES. LANGUAGE LANGUAGES SPOKEN:MAURITANIAN RECREATIONAL DRUG USE DRUG USE?NO EXERCISE: DAILY. LEARNING BARRIERS / SPECIAL NEEDS SPECIAL DEVICES?YES CPAP USED PAIN CLINIC PFS, CLERGY, PUBLIC HEALTH REFERRALS PFS REFERRAL NEEDED?NO CLERGY REFERRAL NEEDED?NO PUBLIC HEALTH REFERRAL NEEDED?NO WAS THE PROVIDER NOTIFIED OF ANY PERTINENT INFO?NO HAS THE PATIENT BEEN EDUCATED REGARDING HIS/HER PLAN OF CARE?YES HAS THE PATIENT BEEN EDUCATED REGARDING PAIN, THE RISK FOR PAIN, THE IMPORTANCE OF EFFECTIVE PAIN MANAGEMENT, AND THE PAIN ASSESSMENT PROCESS?YES LATEX QUESTIONNAIRE LATEX ALLERGY : HAVE YOU EVER DEVELOPED ANY TYPE OF REACTION AFTER HANDLING LATEX PRODUCTS SUCH RUBBER GLOVES, CONDOMS, DIAPHRAGMS, BALLOONS, SOCKS, OR UNDERWEAR?YES - PLEASE INDICATE :RUBBER GLOVES LATEX ALLERGY : HAVE YOU EVER DEVELOPED ANY TYPE OF REACTION DURING OR AFTER DENTAL APPOINTMENT, VAGINAL/RECTAL EXAMINATION, SURGICAL PROCEDURE, OR ANY OTHER EXPOSURE?NO LATEX RISK : HAVE YOU EVER HAD ANY DIFFICULTY BREATHING OR HIVES AFTER EATING OR HANDLING ANY FRUITS, OR VEGETABLES; SUCH KIWI, BANANAS, STONE FRUITS, OR CHESTNUTSNO LATEX RISK : DO YOU HAVE A PREVIOUS PERSONAL HISTORY OF MORE THAN NINE SURGERIES, SPINA BIFIDA, OR REPEATED CATHERIZATIONS? NO LATEX RISK : ARE YOU FREQUENTLY EXPOSED TO LATEX PRODUCTS IN YOUR OCCUPATION?NO DATE ASKED : 02/25/2019 CAFFEINE CAFFEINE USE?NO ADVANCE DIRECTIVE ADVANCE DIRECTIVE DISCUSSED WITH PATIENT:YES HCP INFORMATION GIVEN AT PREVIOUS APPOINTMENT, PATIENT DECLINED ASSISTANCE IN FILLING OUT. MARITAL STATUS: DAILY. ALCOHOL SCREENING DID YOU HAVE A DRINK CONTAINING ALCOHOL IN THE PAST YEAR?NO POINTS0 INTERPRETATIONNEGATIVE OCCUPATION: DO YOU FEEL SAFE IN YOUR ENVIRONMENT? YES. REVIEWED WITH PATIENT 02/25/19 0930 JSREVIEWED WITH PATIENT 04/15/19 1326 JS. HOSPITALIZATION/MAJOR DIAGNOSTIC PROCEDURE [facility] REVIEW OF SYSTEMS REVIEWED BY: PROVIDER: . CONSTITUTIONAL: ANY CHANGE IN YOUR MEDICAL CONDITION? NO . CHILLS NO . FEVER NO . INFECTION: DO YOU HAVE NEW INFECTIONS? NO . DO YOU HAVE HISTORY OF MRSA? NO . MUSCULOSKELETAL: ANY NEW PATTERNS OF PAIN OR NUMBNESS? NO . GASTROENTEROLOGY: ANY NEW CHANGE IN BOWEL CONTROL? NO . GENITOURINARY: ANY NEW CHANGE IN BLADDER CONTROL? NO . IS THERE A CHANCE YOU COULD BE ? NO . HEMATOLOGY/LYMPH: DO YOU TAKE ANY BLOOD THINNERS? (FOR EXAMPLE- COUMADIN, PLAVIX, AGGRENOX, PLATEL, PRADAXA, OR XARELTO) NO . WHEN WAS YOUR LAST DOSE? DATE: TIME: . NEUROLOGY: HAVE YOU FALLEN IN THE PAST 12 MONTHS? NO . ANY NEW EXTREMITY NUMBNESS OR WEAKNESS? NO . CARDIOLOGY: DO YOU HAVE A PACEMAKER OR DEFIBRILLATOR? NO . RESPIRATORY: HAVE YOU BEEN SICK IN THE PAST WEEK? NO . FEVER NO . FLU LIKE SYMPTOMS? NO . COUGH NO . INTEGUMENTARY: DO YOU HAVE ANY RASHES OR OPEN SORES? NO . ALLERGIC/IMMUNO: ARE YOU ALLERGIC TO IV DYE? NO . ANY NEW ALLERGIES? NO . PSYCHIATRIC: DO YOU HAVE THOUGHTS OF HURTING YOURSELF OR SOMEONE ELSE? NO . ARE YOU ABUSED, NEGLECTED, OR IN AN UNSAFE ENVIRONMENT? NO . ENDOCRINOLOGY: ARE YOU DIABETIC? NO . OTHER: DO YOU NEED ANY PRESCRIPTIONS? NO . IF YES, PLEASE LIST: ____ . ANY NEW PROBLEMS WITH YOUR MEDICATIONS? NO . WHEN DID YOU LAST EAT? 06/15/19 11PM . WHEN DID YOU LAST DRINK? 06/16/19 1000 . WHAT DID YOU LAST DRINK? WATER . NAME OF PERSON DRIVING YOU HOME? KIKI . DO YOU HAVE ANY OTHER QUESTIONS OR CONCERNS NO . VITAL SIGNS WT 358.6 LBS, HT 63 IN, BMI 63.52 INDEX, BP 128/59 MM HG, HR 75 /MIN, RR 18 /MIN, TEMP 98.4 F, OXYGEN SAT % 99%, NA INITIALS SC 12:14, REVIEWED BY: EM. ASSESSMENTS SPONDYLOSIS OF THORACIC REGION WITHOUT MYELOPATHY OR RADICULOPATHY - M47.814 (PRIMARY) TREATMENT SPONDYLOSIS OF THORACIC REGION WITHOUT MYELOPATHY OR RADICULOPATHY [facility] FLUORO GUIDE SPINE INJECTION (PAIN)[id number] PROCEDURES PN WORKMANS' COMP OPINION IN YOUR OPINION, WAS THE INCIDENT THAT THE PATIENT DESCRIBED THE COMPETENT MEDICAL CAUSE OF THIS INJURY/ILLNESS? YES ARE THE PATIENT'S COMPLAINTS CONSISTENT WITH HIS/HER HISTORY OF THE INJURY/ILLNESS? YES IS THE PATIENT'S HISTORY OF THE INJURY/ILLNESS CONSISTENT WITH YOUR OBJECTIVE FINDING? YES WHAT IS THE PERCENTAGE OF TEMPORARY IMPAIRMENT? MODERATE TO MARKED = 66.7% IS THE PATIENT WORKING? YES DOCTOR ON SITE: BREANNA GUARDADO MD PN THORACIC FACET BLOCK THERAPEUTIC PRE PROCEDURE DIAGNOSIS THORACIC SPONDYLOSIS POST PROCEDURE DIAGNOSIS THORACIC SPONDYLOSIS PROCEDURE THORACIC SPONDYLOSIS SURGEON DR. BREANNA LIMA FACING SLITTER NONE ANESTHESIA LOCAL PRE PROCEDURE NOTE THE PATIENT WITH HISTORY OF CHRONIC THORACIC PAIN. I EVALUATED THE PATIENT AND REVIEWED THE CHART. I WENT OVER THE RISKS, ALTERNATIVES, AND BENEFITS ASSOCIATED WITH THIS PROCEDURE. THE PATIENT WOULD LIKE TO PROCEED AND GAVE CONSENT TO PERFORM THE PROCEDURE. THE PATIENT DENIES UNEXPLAINABLE WEIGHT LOSS, FEVER, CHILLS, OR NEW CHANGES IN URINARY OR BOWEL CONTROL. DESCRIPTION OF PROCEDURE THE PATIENT WAS BROUGHT TO THE PROCEDURE ROOM AND PLACED IN THE PRONE POSITION. THE THORACIC AREA WAS CLEANED WITH CHLORAPREP SOLUTION AND DRAPED ASEPTICALLY. THE PROCEDURE WAS DONE UNDER STERILE CONDITIONS. I CHECKED LATERALITY AND THE LEVEL WHERE THE PROCEDURE WAS GOING TO BE PERFORMED WITH THE PATIENT AND THE SUPPORTING STAFF AT THE MOMENT OF THE TIME OUT IN THE PROCEDURE ROOM. UNDER FLUOROSCOPIC GUIDANCE, THE TARGET POINT WAS SELECTED AT THE RIGHT T9-T10 AND RIGHT T11-T12 THORACIC FACETS. TARGET POINT WAS SELECTED AFTER LATERAL ROTATION AND TILT OF THE MAGNIFIER OF THE C-ARM. LIDOCAINE 0.5% WAS USED TO NUMB THE SKIN AND THE SUBCUTANEOUS TISSUE BELOW IT. SPINAL NEEDLES, 22-GAUGE, WERE ADVANCED UNDER FLUOROSCOPIC GUIDANCE AND FOLLOWING PATIENT FEEDBACK UNTIL THE TARGETS WERE TOUCHED. THE POSITION OF THE NEEDLES WAS VERIFIED WITH MULTIPLE X-RAY VIEWS. AFTER PROPER POSITION OF THE NEEDLES WAS ACHIEVED, ISOVUE M-200 CONTRAST WAS INJECTED SHOWING ADEQUATE SPREAD OF THE DYE. THEN A SOLUTION OF 0.9 ML OF BUPIVACAINE 0.125% OF KENALOG 10 MG WAS INJECTED AT EACH SITE. THERE WAS NO EVIDENCE OF BLOOD, PARESTHESIA OR CEREBROSPINAL FLUID DURING THE PROCEDURE. THE PATIENT WAS SENT TO THE RECOVERY ROOM. THE PATIENT WAS MOVING THE EXTREMITIES AND DOING WELL. THERE WAS NO COMPLICATION DURING THE PROCEDURE. FLUOROSCOPY TIME WAS 10 SECONDS. POST PROCEDURE NOTE THE PATIENT WILL BE SEEN IN A FOLLOW UP IN THE NEXT FEW WEEKS. INSTRUCTIONS WERE GIVEN, QUESTIONS WERE ANSWERED, AND THE PATIENT EXPRESSED UNDERSTANDING AND AGREED WITH THE PLAN. I, KIAN MANLEY, DOCUMENTED THE ABOVE INFORMATION ACTING A SCRIBE FOR DR. LIMA. I HAVE REVIEWED THE ABOVE DOCUMENT, WRITTEN BY KIAN MANLEY SCRIBE AND I VERIFY THAT IT IS ACCURATE. PROCEDURE CODES 42402 INJ PARAVERT F JNT C/T 1 LEV, MODIFIERS: [place] [id number] INJ PARAVERT F JNT C/T 2 LEV, MODIFIERS: RT 6045F RADXPS IN END [id number] PXD DISPOSITION & COMMUNICATION FOLLOW UP 3 WEEKS ELECTRONICALLY SIGNED BY BREANNA LIMA MD, MD ON 06/28/2019 AT 12:12 PM EDT DISCLAIMER : THIS IS A VISIT SUMMARY EXTRACTED FROM THE [employer] CHART. IT IS NOT A COPY OF THE [employer] PROGRESS NOTE. MTDD
== END ==
LOC: M PAIN 11:30
PROVIDERS: ATTEND Anesthesiology
DX: G89.29 Other chronic pain (principal); M47.814 Spondylosis without myelopathy or radiculopathy, thoracic region; M54.6 Pain in thoracic spine; Z79.899 Other long term (current) drug therapy; Z88.2 Allergy status to sulfonamides; Z88.8 Allergy status to other drugs, medicaments and biological substances; J30.2 Other seasonal allergic rhinitis; J30.81 Allergic rhinitis due to animal (cat) (dog) hair and dander
CPT/HCPCS: 64490; 64491; 71046; J3301; Q9966

== ENCOUNTER → 2019-07-15 | Outpatient (CLI) | payer OTHER ==
[~2019-07-15] MED LIST changes: +AUGM875T28 PO; -BUPIVACAINE HCL 0.25% 30 ML VIAL As Ordered ONE; -ISOVUE-M 200 41% 20ML VIAL (Q9966) As Ordered ONE; -LIDOCAINE 1% SDV INJ 30 ML VIAL As Ordered ONE; +MELO15TA28 PO; -METF750T; +METF750T36; +MUCI600T31 PO; +OMEP-358 PO; +OMEP1CAP73; -OMEP20CA4; -OMEP20TA PO; +PSEU30TA85 PO; +TIZA4TAB4 PO; -TRIAMCINOLONE ACETONIDE SUSP 40 MG/ML VIAL (J3301) As Ordered ONE
--- NOTE | 2019-07-19 00:19 | ECWPNPC ---
PATIENT NAME: MYKE SWANSON : 1980 GENDER: FEMALE VISIT DATE: 07/15/2019 DISCHARGE DATE: 07/15/19 1207 VISIT LOCKED DATE TIME: PHYSICIAN: BIBI VILLAFUERTE RESOURCE: BIBI VILLAFUERTE REASON FOR APPOINTMENT 1. W/C, POST PROCEDURE HISTORY OF PRESENT ILLNESS HISTORY OF PRESENT ILLNESS: PAIN THE PATIENT DESCRIBES THE PAIN... 39-YEAR-OLD FEMALE IN FOR A POST FACET BLOCK FOLLOW-UP. PATIENT FEELS THE PROCEDURE WORKED WELL FOR A FEW WEEKS SHE WOULD RATE HER PAIN PREPROCEDURE AT AN 8 OUT OF 10 AND POST PROCEDURE AT A 5 OUT OF 10. SHE RATES HER PAIN CURRENTLY AT AN 8 OUT OF 10 AND DESCRIBES IT ACHING, SORE, TENDER, SHARP, SHOOTING, AND STABBING. FALL RISK SCREENING: SCREENING :NO FALLS REPORTED IN THE LAST YEAR CURRENT MEDICATIONS TAKING VENTOLIN HFA 108 (90 BASE) MCG/ACT AEROSOL SOLUTION 2 PUFFS NEEDED INHALATION EVERY 6 HRS TAKING TYLENOL 325 MG TABLET 1 TABLET NEEDED ORALLY EVERY 4 HRS TAKING MELOXICAM 7.5 MG TABLET 1 TABLET ORALLY ONCE A DAY TAKING TIZANIDINE HCL 4 MG TABLET 1 TABLET NEEDED ORALLY THREE TIMES A DAY TAKING VOLTAREN 1 % GEL TRANSDERMAL , NOTES: NONE RECENT TAKING ADVAIR DISKUS 500-50 MCG/DOSE AEROSOL POWDER BREATH ACTIVATED 1 PUFF INHALATION TWICE A DAY NOT-TAKING VITAMIN D 1000 UNIT CAPSULE 1 CAPSULE ORALLY ONCE A DAY NOT-TAKING LIDOCAINE 5 % CREAM EXTERNALLY NOT-TAKING VITAMIN B 12 500 MCG LOZENGE 2 LOZENGES ORALLY ONCE A DAY NOT-TAKING FLOVENT HFA 44 MCG/ACT AEROSOL 1 PUFF INHALATION TWICE A DAY MEDICATION LIST REVIEWED AND RECONCILED WITH THE PATIENT PAST MEDICAL HISTORY DEGENERATION OF LUMBAR INTERVERTABRAL DISC ASTHMA SLEEP APNEA BACK PAIN ALLERGIES SULFA (FOR ALLERGY USE ONLY) MANY ENVIRONMENTAL CATS/DOGS/MOLD /GRAS QUINOLONES: ANAPHYLAXIS - ALLERGY SURGICAL HISTORY WISDOM TEETH REMOVED FAMILY HISTORY FATHER: ALIVE, DIAGNOSED WITH HYPERTENSION MOTHER: SIBLINGS: ALIVE SOCIAL HISTORY GENERAL: TOBACCO USE ARE YOU A:NONSMOKER OTHERS AT HOME: SPOUSE. HOUSING: OWNS HOME. EDUCATION LEVEL OF EDUCATION:NOT FINISHED COLLEGE DIET: DO YOU FEEL SAFE IN YOUR ENVIRONMENT? YES. LANGUAGE LANGUAGES SPOKEN:BAHRAINI RECREATIONAL DRUG USE DRUG USE?NO EXERCISE: DAILY. LEARNING BARRIERS / SPECIAL NEEDS SPECIAL DEVICES?YES CPAP USED PAIN CLINIC PFS, CLERGY, PUBLIC HEALTH REFERRALS PFS REFERRAL NEEDED?NO CLERGY REFERRAL NEEDED?NO PUBLIC HEALTH REFERRAL NEEDED?NO WAS THE PROVIDER NOTIFIED OF ANY PERTINENT INFO?NO HAS THE PATIENT BEEN EDUCATED REGARDING HIS/HER PLAN OF CARE?YES HAS THE PATIENT BEEN EDUCATED REGARDING PAIN, THE RISK FOR PAIN, THE IMPORTANCE OF EFFECTIVE PAIN MANAGEMENT, AND THE PAIN ASSESSMENT PROCESS?YES LATEX QUESTIONNAIRE LATEX ALLERGY : HAVE YOU EVER DEVELOPED ANY TYPE OF REACTION AFTER HANDLING LATEX PRODUCTS SUCH RUBBER GLOVES, CONDOMS, DIAPHRAGMS, BALLOONS, SOCKS, OR UNDERWEAR?YES LATEX ALLERGY : HAVE YOU EVER DEVELOPED ANY TYPE OF REACTION DURING OR AFTER DENTAL APPOINTMENT, VAGINAL/RECTAL EXAMINATION, SURGICAL PROCEDURE, OR ANY OTHER EXPOSURE?NO - PLEASE INDICATE :RUBBER GLOVES DATE ASKED : 02/25/2019 LATEX RISK : HAVE YOU EVER HAD ANY DIFFICULTY BREATHING OR HIVES AFTER EATING OR HANDLING ANY FRUITS, OR VEGETABLES; SUCH KIWI, BANANAS, STONE FRUITS, OR CHESTNUTSNO LATEX RISK : DO YOU HAVE A PREVIOUS PERSONAL HISTORY OF MORE THAN NINE SURGERIES, SPINA BIFIDA, OR REPEATED CATHERIZATIONS? NO LATEX RISK : ARE YOU FREQUENTLY EXPOSED TO LATEX PRODUCTS IN YOUR OCCUPATION?NO CAFFEINE CAFFEINE USE?NO ADVANCE DIRECTIVE ADVANCE DIRECTIVE DISCUSSED WITH PATIENT:YES HCP INFORMATION GIVEN AT PREVIOUS APPOINTMENT, PATIENT DECLINED ASSISTANCE IN FILLING OUT. 07/15/19 MARITAL STATUS: DAILY. ALCOHOL SCREENING DID YOU HAVE A DRINK CONTAINING ALCOHOL IN THE PAST YEAR?NO POINTS0 INTERPRETATIONNEGATIVE OCCUPATION: DO YOU FEEL SAFE IN YOUR ENVIRONMENT? YES. REVIEWED WITH PATIENT 02/25/19 0917 JSREVIEWED WITH PATIENT 04/15/19 1326 JSREVIWED WITH PATIENT 07/15/19 1122 BV. HOSPITALIZATION/MAJOR DIAGNOSTIC PROCEDURE [facility] REVIEW OF SYSTEMS REVIEWED BY: PROVIDER: SHANDA DYE-Asif . CONSTITUTIONAL: ANY CHANGE IN YOUR MEDICAL CONDITION? NO . CHILLS NO . FEVER NO . INFECTION: DO YOU HAVE NEW INFECTIONS? NO . DO YOU HAVE HISTORY OF MRSA? NO . MUSCULOSKELETAL: ANY NEW PATTERNS OF PAIN OR NUMBNESS? YES, PT STATES PAIN INTENSITY HAS INCREASED OVER THE PAST WEEK. . GASTROENTEROLOGY: ANY NEW CHANGE IN BOWEL CONTROL? NO . GENITOURINARY: ANY NEW CHANGE IN BLADDER CONTROL? NO . IS THERE A CHANCE YOU COULD BE ? NO . HEMATOLOGY/LYMPH: DO YOU TAKE ANY BLOOD THINNERS? (FOR EXAMPLE- COUMADIN, PLAVIX, AGGRENOX, PLATEL, PRADAXA, OR XARELTO) NO . WHEN WAS YOUR LAST DOSE? DATE: TIME: . NEUROLOGY: HAVE YOU FALLEN IN THE PAST 12 MONTHS? NO . ANY NEW EXTREMITY NUMBNESS OR WEAKNESS? NO . CARDIOLOGY: DO YOU HAVE A PACEMAKER OR DEFIBRILLATOR? NO . RESPIRATORY: HAVE YOU BEEN SICK IN THE PAST WEEK? NO . FEVER NO . FLU LIKE SYMPTOMS? NO . COUGH NO . INTEGUMENTARY: DO YOU HAVE ANY RASHES OR OPEN SORES? NO . ALLERGIC/IMMUNO: ARE YOU ALLERGIC TO IV DYE? NO . ANY NEW ALLERGIES? NO . PSYCHIATRIC: DO YOU HAVE THOUGHTS OF HURTING YOURSELF OR SOMEONE ELSE? NO . ARE YOU ABUSED, NEGLECTED, OR IN AN UNSAFE ENVIRONMENT? NO . ENDOCRINOLOGY: ARE YOU DIABETIC? NO . OTHER: DO YOU NEED ANY PRESCRIPTIONS? NO . IF YES, PLEASE LIST: ____ . ANY NEW PROBLEMS WITH YOUR MEDICATIONS? NO . WHEN DID YOU LAST EAT? ____ . WHEN DID YOU LAST DRINK? ____ . WHAT DID YOU LAST DRINK? ____ . NAME OF PERSON DRIVING YOU HOME? ____ . DO YOU HAVE ANY OTHER QUESTIONS OR CONCERNS YES, WOULD LIKE TO DISCUSS OTHER OPTIONS FOR KEEPING PAIN UNDER CONTROL. POSSIBLY ANOTHER INJECTION OR DIFFERENT MEDICATION . VITAL SIGNS WT 360.4 LBS, HT 63 IN, BMI 63.84 INDEX, BP 130/77 MM HG, HR 91 /MIN, RR 18 /MIN, TEMP 97.2 F, OXYGEN SAT % 100%, NA INITIALS AW 1106, REVIEWED BY: BV. EXAMINATION GENERAL EXAMINATION: GENERALNO ACUTE DISTRESS, WELL NOURISHED AND HYDRATED. PSYCHAPPROPRIATE MOOD AND AFFECT . LUNGS:CLEAR TO AUSCULTATION BILATERALLY, NO WHEEZES, RHONCHI, RALES. HEART:NO MURMURS, REGULAR RATE AND RHYTHM. BACK:POINT TENDER OVER THORACIC SPINE, SURROUNDING SKIN SHOWS NO ERYTHEMA, ECCHYMOSIS, INCREASED WARMTH, AND/OR SKIN ERUPTIONS NOTED. INCREASED PAIN WITH FACET LOADING ON THE RIGHT SIDE . ASSESSMENTS SPONDYLOSIS OF THORACIC REGION WITHOUT MYELOPATHY OR RADICULOPATHY - M47.814 (PRIMARY) TREATMENT SPONDYLOSIS OF THORACIC REGION WITHOUT MYELOPATHY OR RADICULOPATHY NOTES: RIGHT T9-T10, T11-T12 THERAPEUTIC FACET BLOCK. CLINICAL NOTES: 39-YEAR-OLD FEMALE IN FOR POST THERAPEUTIC FACET BLOCK FOLLOW-UP. GIVEN PRESENTING SYMPTOMS AND RESULTS OF PHYSICAL EXAMINATION RECOMMENDED REPEAT FACET BLOCK WITH POSTPROCEDURAL FOLLOW-UP. DISCUSSED POTENTIALLY INCREASING MELOXICAM. PATIENT HAS EXPRESSED UNDERSTANDING OF AND WAS IN AGREEMENT WITH TREATMENT PLAN. GIVEN TIME TO ASK QUESTIONS AND EXPRESS CONCERNS. OTHERS REFILL MELOXICAM TABLET, 15 MG, 1 TABLET, ORALLY, ONCE A DAY, 30 DAYS, 30 TABLET, REFILLS 2 PROCEDURES PN WORKMANS' COMP OPINION IN YOUR OPINION, WAS THE INCIDENT THAT THE PATIENT DESCRIBED THE COMPETENT MEDICAL CAUSE OF THIS INJURY/ILLNESS? YES ARE THE PATIENT'S COMPLAINTS CONSISTENT WITH HIS/HER HISTORY OF THE INJURY/ILLNESS? YES IS THE PATIENT'S HISTORY OF THE INJURY/ILLNESS CONSISTENT WITH YOUR OBJECTIVE FINDING? YES WHAT IS THE PERCENTAGE OF TEMPORARY IMPAIRMENT? MODERATE TO MARKED = 66.7% IS THE PATIENT WORKING? YES DOCTOR ON SITE: BREANNA GUARDADO MD PREVENTIVE MEDICINE PAIN CLINIC TEACHING: PROCEDURE TEACHING PT GIVEN WRITTEN AND VERBAL PRE PROCEDURE INSTRUCTIONS. PT VERBALIZES UNDERSTANDING OF ALL INSTRUCTIONS. MARYCRUZ GARCES 07/15/2019 1:11:55 PM > . PROCEDURE CODES FA211 ESTABILISHED PATIENT [facility] CHARGE DISPOSITION & COMMUNICATION FOLLOW UP POSTPROCEDURE (REASON: RIGHT T9-T10, T11-T12 THERAPEUTIC FACET BLOCK) ELECTRONICALLY SIGNED BY MARNIE ARNETT ON 07/18/2019 AT 01:10 PM EDT DISCLAIMER : THIS IS A VISIT SUMMARY EXTRACTED FROM THE [employer] CHART. IT IS NOT A COPY OF THE [employer] PROGRESS NOTE. JUAN PABLO
== END ==
LOC: M PAIN 10:30
PROVIDERS: ATTEND Family Medicine
DX: M47.814 Spondylosis without myelopathy or radiculopathy, thoracic region (principal); J45.909 Unspecified asthma, uncomplicated; G47.30 Sleep apnea, unspecified; Z88.2 Allergy status to sulfonamides; Z88.8 Allergy status to other drugs, medicaments and biological substances; E66.01 Morbid (severe) obesity due to excess calories; Z68.44 Body mass index [BMI] 60.0-69.9, adult; Z79.899 Other long term (current) drug therapy

== ENCOUNTER → 2019-08-19 | Outpatient (CLI) | payer OTHER ==
[~2019-08-19] MED LIST changes: -AUGM875T28 PO; -MELO15TA28 PO; -MUCI600T31 PO; -OMEP-358 PO; -OMEP1CAP73; +OMEP20CA4; +OMEP20TA PO; -PSEU30TA85 PO; -TIZA4TAB4 PO
== END ==
LOC: M PAIN 10:30
PROVIDERS: ATTEND Family Medicine
DX: M47.814 Spondylosis without myelopathy or radiculopathy, thoracic region (principal); M51.36 Other intervertebral disc degeneration, lumbar region; J45.909 Unspecified asthma, uncomplicated; G47.30 Sleep apnea, unspecified; Z79.1 Long term (current) use of non-steroidal anti-inflammatories (NSAID); Z79.899 Other long term (current) drug therapy; Z88.1 Allergy status to other antibiotic agents; Z88.2 Allergy status to sulfonamides

== ENCOUNTER 2019-09-15 11:27 | Emergency (ER) | payer OTHER ==
[~2019-09-15] VITALS: Ht 160 cm; Wt 161.6 kg
[~2019-09-15 11:27] MED LIST changes: +OMEP-358 PO; -OMEP20TA PO
[2019-09-15] MEDS ORDERED: TIZA4TAB4 PO (12:16)
[2019-09-15] MEDS ORDERED: MELO15TA28 PO (12:16)
[2019-09-15] MEDS ORDERED: ALBUTEROL SULFATE 2.5 MG/0.5 ML INH NEB SOLN NEB ONE (13:00)
[2019-09-15 13:27] LABS: BASO # 0.1 10^3/uL (0.0-0.2); BASO % 0.5 % (0.0-1.0); EOS # 0.2 10^3/uL (0.0-0.5); EOS % 1.7 % (0.0-3.0); HEMATOCRIT 39.1 % (36.0-47.0); HEMOGLOBIN 12.3 g/dl (12.0-15.5); LYMPH # 2.7 10^3/uL (1.5-5.0); LYMPH % 23.9 % (24.0-44.0); MEAN CORPUSCULAR HEMOGLOBIN 26.6 pg (27.0-33.0); MEAN CORPUSCULAR HGB CONC 31.5 g/dl (32.0-36.5); MEAN CORPUSCULAR VOLUME 84.6 fl (80.0-96.0); MONO # 1.2 10^3/uL (0.0-0.8); MONO % 10.7 % (0.0-5.0); NEUTROPHILS # 7.1 10^3/uL (1.5-8.5); NEUTROPHILS % 62.8 % (36.0-66.0); PLATELET COUNT, AUTOMATED 336 10^3/uL (150-450); RED BLOOD COUNT 4.62 10^6/uL (4.00-5.40); WHITE BLOOD COUNT 11.3 10^3/uL (4.0-10.0)
[2019-09-15 13:53] LABS: BLOOD UREA NITROGEN 9 MG/DL (7-18); CARBON DIOXIDE LEVEL 27 MEQ/L (21-32); CHLORIDE LEVEL 106 MEQ/L (98-107); CREATININE FOR GFR 0.71 MG/DL (0.55-1.30); GLOMERULAR FILTRATION RATE > 60.0 (>60); GLUCOSE, FASTING 85 MG/DL (70-100); POTASSIUM SERUM 3.6 MEQ/L (3.5-5.1); SODIUM LEVEL 140 MEQ/L (136-145)
[2019-09-15 15:06] VITALS: BP 119/73
[2019-09-15] MEDS ORDERED: AUGM875T28 PO (15:23)
[2019-09-15] MEDS ORDERED: MUCI600T31 PO (15:23)
[2019-09-15] MEDS ORDERED: PSEU30TA85 PO (15:23)
[2019-09-15] MEDS ORDERED: PRED10TA2 PO (15:23)
[2019-09-15] MEDS ORDERED: AUGMENTIN 875 MG TAB PO ONE (15:30)
--- NOTE | 2019-09-15 20:57 | ECGEPIP ---
[facility] - ED Test Date: 2019-09-15 Pat Name: MYKE SWANSON Department: Room: - Gender: Female Pastoral Assistant: [place] : 1980 Requested By: JUSTINO Medrano PA-C Order Number: [id number] Reading MD: Bill Brewer Measurements Intervals [place] Rate: 72 P: 47 NV: 172 QRS: 11 QRSD: 85 T: 8 QT: 379 QTc: 417 Interpretive Statements SINUS RHYTHM Electronically Signed on 09-15-2019 20:56:59 EST by Bill Brewer
== END 2019-09-15 15:51 | disposition home or self-care (01) ==
LOC: M ED 11:27
DX: J45.901 Unspecified asthma with (acute) exacerbation (principal); J01.90 Acute sinusitis, unspecified; G43.909 Migraine, unspecified, not intractable, without status migrainosus; K21.9 Gastro-esophageal reflux disease without esophagitis; M48.00 Spinal stenosis, site unspecified; Z79.899 Other long term (current) drug therapy; Z88.8 Allergy status to other drugs, medicaments and biological substances; Z88.2 Allergy status to sulfonamides; J30.9 Allergic rhinitis, unspecified; Z91.040 Latex allergy status; Z91.89 Other specified personal risk factors, not elsewhere classified; Z91.018 Allergy to other foods